=== PATIENT | female | born 1970 ===

== ENCOUNTER 2017-05-03 22:54 | Inpatient (IN) | payer OTHER ==
--- NOTE | 2017-05-04 00:20 | ED PDOC ---
HPI: Abdomen Time Seen by Provider: 05/03/17 23:25 Chief Complaint (Nursing): Abdominal Pain Chief Complaint (Provider): Abdominal Pain History Per: Patient History/Exam Limitations: no limitations Onset/Duration Of Symptoms: Days (7 days ago) Outside of [place] travel?: Yes Other Location:: [place] Current Symptoms Are (Timing): Still Present Location Of Pain/Discomfort: RLQ Additional Complaint(s): 46 yo female with a history of chronic cervicitis, presents to the ED complaining of right lower abdominal pain, onset of 7 days ago. Patient reports that the pain became acutely worse when she was getting out of a car today, and describes the pain as sharp, residing mainly in the middle, but also radiates to her right lower quadrant. She reports nausea and diminished appetite, but denies any vomiting, fever, chest pain, diarrhea, or shortness of breath. Past Medical History Reviewed: Historical Data, Nursing Documentation, Vital Signs Vital Signs: Last Vital Signs Temp 98.0 F 05/04/17 05:14 Pulse 116 H 05/04/17 05:14 Resp 14 05/04/17 05:14 BP 104/62 05/04/17 05:14 Pulse Ox 97 05/04/17 05:14 - Medical History Other PMH: chronic cervicitis - Surgical History Surgical History: No Surg Hx - Family History Family History: States: Unknown Family Hx - Social History Current smoker - smoking cessation education provided: No Ex-Smoker (has not smoked in the last 12 months): No Alcohol: None Drugs: Denies - Home Medications Home Medications: Ambulatory Orders Medication Instructions Recorded Naproxen [Naprosyn] 500 mg PO Q12 #14 tab 05/04/17 Sulfamethoxazole/Trimethoprim 1 tab PO BID #20 tab 05/04/17 [Bactrim DS 800 mg-160 mg] - Allergies Allergies/Adverse Reactions: Allergies Allergy/AdvReac Type Severity Reaction Status Date / Time Penicillins Allergy RASH Verified 05/03/17 23:07 Review of Systems ROS Statement: Except As Marked, All Systems Reviewed And Found Negative Constitutional: Positive for: Other (decreased appetite). Negative for: Fever Cardiovascular: Negative for: Chest Pain Respiratory: Negative for: Shortness of Breath Gastrointestinal: Positive for: Nausea, Abdominal Pain (suprapubic and rlq). Negative for: Vomiting, Diarrhea Physical Exam - Reviewed Nursing Documentation Reviewed: Yes Vital Signs Reviewed: Yes - Physical Exam Appears: Positive for: Well, Non-toxic, No Acute Distress Head Exam: Positive for: ATRAUMATIC, NORMAL INSPECTION, NORMOCEPHALIC Skin: Positive for: Normal Color, Warm, DRY Eye Exam: Positive for: EOMI, Normal appearance, PERRL ENT: Positive for: Normal ENT Inspection Neck: Positive for: Normal, Painless ROM Cardiovascular/Chest: Positive for: Regular Rate, Rhythm. Negative for: Murmur Respiratory: Positive for: Normal Breath Sounds. Negative for: Respiratory Distress Gastrointestinal/Abdominal: Positive for: Soft, Tenderness (to suprapubic and RLQ regions) Back: Positive for: Normal Inspection Extremity: Positive for: Normal ROM. Negative for: Pedal Edema, Deformity Neurologic/Psych: Positive for: Alert, Oriented (x3). Negative for: Motor/ Sensory Deficits - Laboratory Results Result Diagrams: 05/04/17 00:10 05/04/17 00:10 - ECG O2 Sat by Pulse Oximetry: 98 (RA) Pulse Ox Interpretation: Normal - Critical Care Total Time (In Min): 30 Medical Decision Making Medical Decision Making: Time: --00:05 Impression: --46 yo female with Right Lower Quadrant abdominal pain Plan: --CT ABD and Pelvis with IV Contrast --Labs --Lipase --ED Urine Dip --Urine Preg --Toradol 15mg IV --Heplock Insertion --Urinalysis --Transvaginal US - Reassess --00:41 CT ABD and Pelvis with IV Constrast was cancelled. Labs reviewed and reveal no clinically significant abnormalities, except for urine, which is indicative of a Urinary Tract infection. Patient is still waiting for Ultrasound. --02:35 EXAM: US Pelvis, Transvaginal EXAM DATE/TIME: 05/04/2017 12:09 AM CLINICAL HISTORY: 46 years old, female; Pain; Pelvic pain; Additional info: Rlq pain TECHNIQUE: Real-time transvaginal pelvic ultrasound (complete) with image documentation. Transvaginal imaging was used for better evaluation of the endometrium and adnexa. COMPARISON: No relevant prior studies available. FINDINGS: Uterus/cervix: Nabothian cysts in the cervix. There is an IUD in the uterus. Endometrial thickness of 8mm. The uterus measures 8.4 x 5 x 3.4 cm. No myometrial mass. Right ovary: Right ovary measures 37 x 27 x 37 mm with a 13 mm follicle. Normal blood flow. Left ovary: Enlarged heterogeneous left ovary measuring at 9.6 x 5.4 x 9 cm, with cystic and solid areas. Normal blood flow. Free fluid: No free fluid. IMPRESSION: Complexed enlarged left ovary, with cystic and solid areas, mass not excluded. Comparison with priors or further evaluation with MRI may be considered --03:40 Labs reviewed and reveal no clinically significant abnormalities with exception of WBC, which is depressed with a left shift, and is likely indicative of pylonephritis with sepsis. Patient noted to be tachycardic and hypotensive; 4L IV fluid bolus ordered as well as Lactate level. Case was discussed with Dr. Wheatley for admission Dx Pyelonephritis, Sepsis Fair Scribe Attestation: Documented by Shoaib Mccray acting as a scribe for Refugio Winslow MD. Provider Attestation: All medical record entries made by the Scribe were at my direction and personally dictated by me. I have reviewed the chart and agree that the record accurately reflects my personal performance of the history, physical exam, medical decision making, and the department course for this patient. I have also personally directed, reviewed, and agree with the discharge instructions and disposition. Disposition - Clinical Impression Clinical Impression: UTI (urinary tract infection), Ovarian cyst Discussed With : Aram Wheatley - Disposition Disposition Time: 03:40 Condition: FAIR
[2017-05-04 00:23] LABS: BASO % 0.2 % (0.0-2.0); EOS % 0.1 % (0.0-4.0); HEMOGLOBIN 10.7 g/dL (12.0-16.0); LYMPH # 0.3 K/uL (1.0-4.3); LYMPH % 8.2 % (20.0-40.0); MEAN CELL VOLUME 75.3 fl (81.0-99.0); MEAN CORPUSCULAR HEMOGLOBIN 24.2 pg (27.0-31.0); MEAN CORPUSCULAR HGB CONC 32.2 g/dL (33.0-37.0); MEAN PLATELET VOLUME 8.9 fl (7.2-11.7); MONO # 0.2 K/uL (0.0-0.8); MONO % 6.6 % (0.0-10.0); NEUT # 2.7 K/uL (1.8-7.0); NEUT % 84.9 % (50.0-75.0); PLATELET COUNT 171 K/uL (130-400); RBC 4.42 Mil/uL (3.80-5.20); RED CELL DISTRIBUTION WIDTH 17.7 % (11.5-14.5); WHITE BLOOD COUNT 3.1 K/uL (4.8-10.8)
[2017-05-04 00:27] LABS: SQUAMOUS EPITHIAL 5 /hpf (0-5); URINE BACTERIA RARE (<OCC); URINE BILIRUBIN NEGATIVE (NEGATIVE); URINE BLOOD LARGE (NEGATIVE); URINE CLARITY CLOUDY (Clear); URINE COLOR YELLOW (YELLOW); URINE GLUCOSE (UA) NEG (Normal); URINE LEUKOCYTE ESTERASE LARGE Leu/uL (Negative); URINE PROTEIN 100 mg/dL (NEGATIVE); URINE UROBILINOGEN 0.2-1.0 mg/dL (0.2-1.0)
[2017-05-04 00:33] LABS: ALB/GLOB RATIO 0.9 (1.0-2.1); ALBUMIN 3.5 g/dL (3.5-5.0); ALT/SGPT 48 U/L (9-52); AST/SGOT 30 U/L (14-36); BLOOD UREA NITROGEN 11 mg/dl (7-17); CALCIUM 8.8 mg/dL (8.4-10.2); GFR AFRICAN-AMERICAN > 60; GFR NON-AFRICAN AMERICAN > 60; LIPASE 18 U/L (23-300)
[2017-05-04] MEDS ORDERED: cefTRIAXone (Rocephin) 1 gm Inj ONE ×2 (00:34→04:01)
[2017-05-04] MEDS ORDERED: Sodium Chloride 0.9% 1,000 ML IV STA ×4 (03:01→04:19)
[2017-05-04 03:20] LABS: ANISOCYTOSIS SLIGHT; BANDS 5 % (0-2); HYPOCHROMIC SLIGHT; LYMPHOCYTE 5 % (20-50); MONOCYTE 6 % (0-10); NEUTROPHIL 84 % (42-75); PLATELET ESTIMATE NORMAL (NORMAL); TOTAL CELLS COUNTED 100
[2017-05-04 03:21] LABS: LARGE PLATELETS PRESENT
[2017-05-04] MEDS ORDERED: Iohexol 300 100 ML IJ ONE (03:50)
--- NOTE | 2017-05-04 03:59 | CP.PCM.HP ---
History of Present Illness - History of Present Illness History of Present Illness: CC: Flank/abd pain, dysuria HPI: This is a 46 y/o female presenting with abdominal discomfort on RLQ. Started about a week ago, and became worse progressively, and especially today. There is associated nausea, and anorexia. No f/c/n/v/d. She does have a history of chronic cervicitis. ROS: 14 systems reviewed, negative other than HPI MHx: Chronic cervicitis SHx: None; has had some type of procedure of cervix Allergies: PCN Family Hx: No known/relevant history Social Hx: Lives with family, no tobacco or significant EtOH Present on Admission - Present on Admission Any Indicators Present on Admission: No Past Patient History - Past Social History Alcohol: None Drugs: Denies - CARDIAC Hx Cardiac Disorders: No - PULMONARY Hx Respiratory Disorders: No - NEUROLOGICAL Hx Neurological Disorder: No - HEENT Hx HEENT Problems: No - RENAL Hx Chronic Kidney Disease: No - ENDOCRINE/METABOLIC Hx Endocrine Disorders: No - HEMATOLOGICAL/ONCOLOGICAL Hx Blood Disorders: No - INTEGUMENTARY Hx Dermatological Problems: No - MUSCULOSKELETAL/RHEUMATOLOGICAL Hx Musculoskeletal Disorders: No - GASTROINTESTINAL Hx Gastrointestinal Disorders: No - GENITOURINARY/GYNECOLOGICAL Hx Genitourinary Disorders: Yes Other/Comment: Cervicitis - PSYCHIATRIC Hx Psychophysiologic Disorder: No Hx Substance Use: No Meds Home Medications: Home Medication List Medication Instructions Recorded Confirmed Type Naproxen [Naprosyn] 500 mg PO Q12 #14 tab 05/04/17 Rx Sulfamethoxazole/Trimethoprim 1 tab PO BID #20 tab 05/04/17 Rx [Bactrim DS 800 mg-160 mg] Allergies/Adverse Reactions: Allergies Allergy/AdvReac Type Severity Reaction Status Date / Time Penicillins Allergy RASH Verified 05/03/17 23:07 Physical Exam - Constitutional Appears: No Acute Distress - Head Exam Head Exam: ATRAUMATIC, NORMOCEPHALIC - Eye Exam Eye Exam: EOMI, PERRL - ENT Exam ENT Exam: Mucous Membranes Moist - Neck Exam Neck exam: Positive for: Full Rom - Respiratory Exam Respiratory Exam: Clear to Auscultation Bilateral, NORMAL BREATHING PATTERN - Cardiovascular Exam Cardiovascular Exam: REGULAR RHYTHM, +S1, +S2 - GI/Abdominal Exam GI & Abdominal Exam: Normal Bowel Sounds, Soft - Extremities Exam Extremities exam: Positive for: full ROM, normal inspection - Neurological Exam Neurological exam: Alert, CN II-XII Intact, Oriented x3 - Psychiatric Exam Psychiatric exam: Normal Affect, Normal Mood - Skin Skin Exam: Dry, Warm Results - Vital Signs Recent Vital Signs: Last Vital Signs Temp 97.9 F 05/04/17 03:13 Pulse 122 H 05/04/17 03:13 Resp 16 05/04/17 03:13 BP 94/57 L 05/04/17 03:13 Pulse Ox 98 05/04/17 03:48 - Labs Result Diagrams: 05/04/17 00:10 05/04/17 00:10 Labs: Laboratory Results - last 24 hr 05/04/17 05/04/17 05/04/17 00:10 00:10 00:10 WBC 3.1 L RBC 4.42 Hgb 10.7 L Hct 33.3 L MCV 75.3 L MCH 24.2 L MCHC 32.2 L RDW 17.7 H Plt Count 171 MPV 8.9 Neut % (Auto) 84.9 H Lymph % (Auto) 8.2 L [place] % (Auto) 6.6 Eos % (Auto) 0.1 Baso % (Auto) 0.2 Neut # (Auto) 2.7 Lymph # (Auto) 0.3 L [place] # (Auto) 0.2 Eos # (Auto) 0.0 Baso # (Auto) 0.0 Neutrophils % (Manual) 84 H Band Neutrophils % 5 H Lymphocytes % (Manual) 5 L Monocytes % (Manual) 6 Platelet Estimate Normal Large Platelets Present Hypochromasia (manual) Slight Anisocytosis (manual) Slight Sodium 135 Potassium 3.7 Chloride 103 Carbon Dioxide 21 L Anion Gap 15 BUN 11 Creatinine 0.6 L Est GFR ( Amer) > 60 Est GFR (Non-Af Amer) > 60 Random Glucose 105 Calcium 8.8 Total Bilirubin 0.8 AST 30 ALT 48 Alkaline Phosphatase 60 Total Protein 7.4 Albumin 3.5 Globulin 3.8 Albumin/Globulin Ratio 0.9 L Lipase 18 L Urine Color Yellow Urine Clarity Cloudy Urine pH 5.0 Ur Specific [place] 1.026 Urine Protein 100 Urine Glucose (UA) Neg Urine Ketones 20 Urine Blood Large Urine Nitrate Negative Urine Bilirubin Negative Urine Urobilinogen 0.2-1.0 Ur Leukocyte Esterase Large Urine RBC (Auto) 34 H Urine Microscopic WBC 151 H Ur Squamous Epith Cells 5 Urine Bacteria Rare - Imaging and Cardiology US - abdomen Status: Report reviewed by me Assessment & Plan (1) Pyelonephritis Assessment and Plan: 46 y/o female with pyelonephritis and associated sepsis. -admite tele -f/u cultures -cont Ceftriaxone 1 g daily -pain control per scale -SCDs for DVT PPx Status: Acute (2) Sepsis Status: Acute (3) DVT prophylaxis Status: Acute
[2017-05-04] MEDS ORDERED: Lactated Ringer's 1,000 ML IV SCH (04:00)
[2017-05-04 04:05] LABS: VENOUS BLOOD GAS BASE EXCESS -3.3 mmol/L (0.0-2.0); VENOUS BLOOD GAS PCO2 36 mmHg (40-60); VENOUS BLOOD GAS PO2 24 mm/Hg (30-55); VENOUS BLOOD PH 7.38 (7.32-7.43)
[2017-05-04] MEDS ORDERED: Oxycodone/Acetaminophen 5/325 mg Tab PO STA (04:27)
--- NOTE | 2017-05-04 06:04 | CT ---
EXAM: CT Abdomen and Pelvis With Intravenous Contrast EXAM DATE/TIME: 05/04/2017 3:40 AM CLINICAL HISTORY: 46 years old, female; Pain; Abdominal pain; Additional info: [facility] pyelo TECHNIQUE: Axial computed tomography images of the abdomen and pelvis with intravenous contrast. All CT scans at this facility use one or more dose reduction techniques, viz.: automated exposure control; ma/kV adjustment per patient size (including targeted exams where dose is matched to indication; i.e. head); or iterative reconstruction technique. Coronal and sagittal reformatted images were created and reviewed. CONTRAST: 95 mL of onmipaque 300 administered intravenously. COMPARISON: None is available. FINDINGS: LOWER THORAX: No infiltrate seen in the lung bases. ABDOMEN: LIVER: Fatty infiltration of the liver. GALLBLADDER AND BILE DUCTS: No CT evidence of acute cholecystitis. No evidence of significant biliary ductal dilatation. PANCREAS: No CT evidence of acute pancreatitis. SPLEEN: No acute abnormality of the spleen identified. ADRENALS: No acute abnormality of the adrenal glands identified. KIDNEYS AND URETERS:No acute abnormality of the kidneys identified. No CT evidence of pyelonephritis.. STOMACH AND BOWEL: Mild, diffuse colonic wall thickening, most likely secondary to incomplete colonic distention versus mild colitis. Scattered colonic diverticulosis, without evidence of diverticulitis. Otherwise, no significant abnormality of the bowel is identified. No evidence of bowel obstruction. APPENDIX: Normal appendix is not seen, however, there are no significant inflammatory changes visualized in the expected location of the appendix to suggest appendicitis. Recommend clinical correlation. PELVIS: BLADDER: No acute abnormality of the bladder identified. REPRODUCTIVE: Findings highly suspicious for a left tubo-ovarian abscess. Best seen on images 47-64 of series 601, there is a crescent shaped complex cystic left adnexal mass, measuring 10 x 3.5 cm, which has a tubular appearance and enhancing soft tissue margins. No associated gas. Small cystic lesion in the right ovary, with an appearance suggestive of an involuting corpus luteal cyst. Linear metallic density in the uterus, most likely representing an intrauterine device or a retained portion of an intrauterine device. Recommend correlation with surgical history. ABDOMEN and PELVIS: INTRAPERITONEAL SPACE: Mild, diffuse peritoneal fat infiltration and peritoneal thickening, highly suspicious for peritonitis. Moderate complex fluid in the pelvis, centered in the cul-de-sac. Small to moderate amount of abdominal free fluid, partially complex in nature. No evidence of free air. BONES/JOINTS: No acute fractures or other acute bony abnormality noted. SOFT TISSUES: No acute abnormality of the visualized soft tissues is seen. VASCULATURE: No evidence of abdominal aortic aneurysm. No evidence of periaortic hemorrhage. LYMPH NODES: No evidence of diffuse lymphadenopathy. IMPRESSION: - FINDINGS HIGHLY SUSPICIOUS FOR PERITONITIS, ASSOCIATED WITH COMPLEX PELVIC AND ABDOMINAL FREE FLUID. THIS IS MOST LIKELY SECONDARY TO A 10 x 3 CM LEFT-SIDED TUBO-OVARIAN ABSCESS. - IUD or retained portion of an IUD in the uterus. Recommend correlation with surgical history. - See above for remaining findings.
[2017-05-04] MEDS ORDERED: Azithromycin 500 MG in Sodium Chloride 0.9% 250 ML IVPB STA (06:06)
[2017-05-04] MEDS ORDERED: metroNIDAZOLE 500mg/100ml NS 100 ML IVPB STA (06:12)
[2017-05-04 06:30] LABS: HEMOGLOBIN 9.9 g/dL (12.0-16.0); MEAN CELL VOLUME 75.1 fl (81.0-99.0); MEAN CORPUSCULAR HEMOGLOBIN 24.9 pg (27.0-31.0); MEAN CORPUSCULAR HGB CONC 33.1 g/dL (33.0-37.0); RBC 3.98 Mil/uL (3.80-5.20); RED CELL DISTRIBUTION WIDTH 17.6 % (11.5-14.5); WHITE BLOOD COUNT 7.8 K/uL (4.8-10.8)
[2017-05-04 06:57] LABS: BLOOD UREA NITROGEN 7 mg/dl (7-17); CALCIUM 7.5 mg/dL (8.4-10.2); GFR AFRICAN-AMERICAN > 60; GFR NON-AFRICAN AMERICAN > 60
--- NOTE | 2017-05-04 07:53 | RAD ---
HISTORY: admit COMPARISON: No prior. FINDINGS: LUNGS: No active pulmonary disease. PLEURA: No significant pleural effusion identified, no pneumothorax apparent. CARDIOVASCULAR: Normal. OSSEOUS STRUCTURES: No significant abnormalities. VISUALIZED UPPER ABDOMEN: Normal. OTHER FINDINGS: None. IMPRESSION: No acute cardiopulmonary disease appreciable.
--- NOTE | 2017-05-04 08:36 | CP.PCM.CON ---
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 Rubin 46 yo presents to ED w/ complaints of lower abdominal pain since Wednesday04/30/17. Pt reports her abdominal pain progressively got worse yesterday (11/24 ) and worse with ambulation and movement. Reports burning with urination. Pt reports she she hx "chronic cervicitis" since 2006 diagnosed in [place], does not know the reason. Pt has IUD placed in 2002 in [place]. Pt does not know type of IUD. Denies vaginal bleeding, vaginal discharge, nausea, vomiting, fever, chills or flank pain. Pt took tylenol and ibuprofen for pain. 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 LMP 04/03/17. Had cold knife cone bx IN 2006 in [place]. States normal pap in 2014. Denies hx STI. Reports she had normal US in 2016. Pmhx: Anemia Pshx: denies social hx: denies smoking cigarettes, drinking EtOH or using drugs. Medications: ibuprofen prn, tylenol prn and Iron pills. Allergies: Penicillin: Rash Review of Systems - Constitutional Constitutional: absent: Chills, Fever - Cardiovascular Cardiovascular: absent: Chest Pain, Dyspnea - Respiratory Respiratory: absent: Cough, Dyspnea - Gastrointestinal Gastrointestinal: Abdominal Pain, Diarrhea. absent: Vomiting - Genitourinary Genitourinary: Dysuria - Reproductive: Female Reproductive:Female: Pelvic Pain. absent: Vaginal Discharge - Neurological Neurological: absent: Dizziness, Headaches Past Patient History - Past Social History Alcohol: None Drugs: Denies - CARDIAC Hx Cardiac Disorders: No - PULMONARY Hx Respiratory Disorders: No - NEUROLOGICAL Hx Neurological Disorder: No - HEENT Hx HEENT Problems: No - RENAL Hx Chronic Kidney Disease: No - ENDOCRINE/METABOLIC Hx Endocrine Disorders: No - HEMATOLOGICAL/ONCOLOGICAL Hx Blood Disorders: No - INTEGUMENTARY Hx Dermatological Problems: No - MUSCULOSKELETAL/RHEUMATOLOGICAL Hx Musculoskeletal Disorders: No - GASTROINTESTINAL Hx Gastrointestinal Disorders: No - GENITOURINARY/GYNECOLOGICAL Hx Genitourinary Disorders: Yes - PSYCHIATRIC Hx Psychophysiologic Disorder: No Meds Allergies/Adverse Reactions: Allergies Allergy/AdvReac Type Severity Reaction Status Date / Time Penicillins Allergy RASH Verified 05/03/17 23:07 - Medications Medications: Current Medications Acetaminophen (Tylenol 325mg Tab) 650 mg PO Q6 PRN PRN Reason: Pain, Mild (1-3) Acetaminophen (Tylenol 325mg Tab) 650 mg PO Q6 PRN PRN Reason: Fever >100.4 F Ceftriaxone Sodium 1 gm/ (Sodium Chloride) 100 mls @ 100 mls/hr IVPB DAILY PATRICIA PRN Reason: Protocol Lactated Ringer's (Lactated Ringer's) 1,000 mls @ 100 mls/hr IV .Q10H [facility] Stop: 05/04/17 23:59 Azithromycin 500 mg/ Sodium (Chloride) 250 mls @ 250 mls/hr IVPB DAILY PATRICIA PRN Reason: Protocol Metronidazole (Flagyl 500mg/100ml Ns) 100 mls @ 100 mls/hr IVPB Q8 PATRICIA PRN Reason: Protocol Doxycycline Hyclate 100 mg/ (Sodium Chloride) 100 mls @ 100 mls/hr IVPB Q12 PATRICIA PRN Reason: Protocol Ketorolac Tromethamine (Toradol) 15 mg IVP Q6 PRN PRN Reason: Pain, moderate (4-7) Last Admin: 05/04/17 05:34 Dose: 15 mg Physical Exam - Constitutional Appears: Non-toxic, No Acute Distress - ENT Exam ENT Exam: Mucous Membranes Moist - Respiratory Exam Respiratory Exam: Clear to Auscultation Bilateral, NORMAL BREATHING PATTERN. absent: Rales, Rhonchi - Cardiovascular Exam Cardiovascular Exam: Tachycardia, REGULAR RHYTHM, +S1, +S2 - GI/Abdominal Exam GI & Abdominal Exam: Soft. absent: Distended Additional comments: Mild tenderness in lower abdomen. No guarding or rigidity. - Exam Speculum exam: NORMAL SPECULUM EXAM (Unable to visualized the string of IUD.). absent: Vaginal Bleeding, Vaginal Discharge Additional comments: Mild uterine tenderness and mild CMT tenderness. Mild right adnexal tenderness with fullness on right. Has shortened cervix. - Extremities Exam Extremities exam: Positive for: normal inspection. Negative for: calf tenderness - Back Exam Back exam: absent: CVA tenderness (L), CVA tenderness (R) - Neurological Exam Neurological exam: Alert, Oriented x3 Results - Vital Signs Recent Vital Signs: Last Vital Signs Temp 97.7 F 05/04/17 07:58 Pulse 117 H 05/04/17 07:58 Resp 18 05/04/17 07:58 BP 96/58 L 05/04/17 07:58 Pulse Ox 100 05/04/17 07:58 - Labs Result Diagrams: 05/04/17 05:45 05/04/17 05:45 Labs: Laboratory Results - last 24 hr 05/04/17 05/04/17 05/04/17 00:10 00:10 00:10 WBC 3.1 L RBC 4.42 Hgb 10.7 L Hct 33.3 L MCV 75.3 L MCH 24.2 L MCHC 32.2 L RDW 17.7 H Plt Count 171 MPV 8.9 Neut % (Auto) 84.9 H Lymph % (Auto) 8.2 L [place] % (Auto) 6.6 Eos % (Auto) 0.1 Baso % (Auto) 0.2 Neut # (Auto) 2.7 Lymph # (Auto) 0.3 L [place] # (Auto) 0.2 Eos # (Auto) 0.0 Baso # (Auto) 0.0 Neutrophils % (Manual) 84 H Band Neutrophils % 5 H Lymphocytes % (Manual) 5 L Monocytes % (Manual) 6 Platelet Estimate Normal Large Platelets Present Hypochromasia (manual) Slight Anisocytosis (manual) Slight pO2 VBG pH VBG pCO2 VBG HCO3 VBG Total CO2 VBG O2 Sat (Calc) VBG Base Excess VBG Potassium Glucose Lactate FiO2 Sodium 135 Potassium 3.7 Chloride 103 Carbon Dioxide 21 L Anion Gap 15 BUN 11 Creatinine 0.6 L Est GFR ( Amer) > 60 Est GFR (Non-Af Amer) > 60 Random Glucose 105 Calcium 8.8 Total Bilirubin 0.8 AST 30 ALT 48 Alkaline Phosphatase 60 Total Protein 7.4 Albumin 3.5 Globulin 3.8 Albumin/Globulin Ratio 0.9 L Lipase 18 L Venous Blood Potassium Urine Color Yellow Urine Clarity Cloudy Urine pH 5.0 Ur Specific [place] 1.026 Urine Protein 100 Urine Glucose (UA) Neg Urine Ketones 20 Urine Blood Large Urine Nitrate Negative Urine Bilirubin Negative Urine Urobilinogen 0.2-1.0 Ur Leukocyte Esterase Large Urine RBC (Auto) 34 H Urine Microscopic WBC 151 H Ur Squamous Epith Cells 5 Urine Bacteria Rare 05/04/17 05/04/17 05/04/17 03:50 05:45 05:45 WBC 7.8 D RBC 3.98 Hgb 9.9 L Hct 29.9 L MCV 75.1 L MCH 24.9 L MCHC 33.1 RDW 17.6 H Plt Count 167 MPV Neut % (Auto) Lymph % (Auto) [place] % (Auto) Eos % (Auto) Baso % (Auto) Neut # (Auto) Lymph # (Auto) [place] # (Auto) Eos # (Auto) Baso # (Auto) Neutrophils % (Manual) Band Neutrophils % Lymphocytes % (Manual) Monocytes % (Manual) Platelet Estimate Large Platelets Hypochromasia (manual) Anisocytosis (manual) pO2 24 L VBG pH 7.38 VBG pCO2 36 L VBG HCO3 20.8 VBG Total CO2 22.4 VBG O2 Sat (Calc) 48.1 VBG Base Excess -3.3 L VBG Potassium 3.7 Glucose 101 Lactate 1.0 FiO2 21.0 Sodium 136.0 139 Potassium 3.6 Chloride 108.0 H 111 H Carbon Dioxide 19 L Anion Gap 13 BUN 7 Creatinine 0.6 L Est GFR ( Amer) > 60 Est GFR (Non-Af Amer) > 60 Random Glucose 103 Calcium 7.5 L Total Bilirubin AST ALT Alkaline Phosphatase Total Protein Albumin Globulin Albumin/Globulin Ratio Lipase Venous Blood Potassium 3.7 Urine Color Urine Clarity Urine pH Ur Specific [place] Urine Protein Urine Glucose (UA) Urine Ketones Urine Blood Urine Nitrate Urine Bilirubin Urine Urobilinogen Ur Leukocyte Esterase Urine RBC (Auto) Urine Microscopic WBC Ur Squamous Epith Cells Urine Bacteria Assessment & Plan - Assessment and Plan (Free Text) Assessment: Assessment: 46 yo admitted today for pyenonephritis and sepsis, now CT scan shows left tubo-ovarian abscess. Plan: 1. PID with left tubo-ovarian abscess Transvaginal US: IMPRESSION: complexed enlarged left ovary, with cystic and solid areas, mass not excluded. Comparison with priors or further evaluation with MRI may be considered. CT of abdomen and pelvis: Impression: findings highly suspicious for peritonitis , associated with complex pelvic and abdominal free fluid. This is most likely secondary to a 10x3 cm left sided tubo-ovarian abscess. -Recommend ID consult for abx management. 2. IUD for 15 yrs -Unable to visualized the string with speculum exam -If pt's vitals are stable, IUD removal can be considered. -May need surgical removal of IUD with diagnostic hysteroscopy. Pt seen and examined with on-call OB Hospitalist Dr. Caryn Martinez, pgy-1 <Nona Rubin S - Last Filed: 05/10/17 20:59> Review of Systems - Respiratory Respiratory: absent: Dyspnea on Exertion - Reproductive: Female Reproductive:Female: Cycle > 4 Weeks Between. absent: Cycle <21 Days - Integumentary Integumentary: absent: Rash Results - Vital Signs Recent Vital Signs: Last Vital Signs Temp 99.0 F 05/10/17 17:00 Pulse 101 H 05/10/17 17:00 Resp 17 05/10/17 17:00 BP 111/73 05/10/17 17:00 Pulse Ox 98 05/10/17 17:00 - Labs Result Diagrams: 05/10/17 04:20 05/10/17 04:20 Labs: Laboratory Results - last 24 hr 05/10/17 05/10/17 04:20 04:20 WBC 11.1 H RBC 3.90 Hgb 9.5 L Hct 28.8 L MCV 73.8 L MCH 24.3 L MCHC 33.0 RDW 18.2 H Plt Count 333 Sodium 140 Potassium 3.4 L Chloride 104 Carbon Dioxide 23 Anion Gap 16 BUN 8 Creatinine 0.6 L Est GFR ( Amer) > 60 Est GFR (Non-Af Amer) > 60 Random Glucose 97 Calcium 7.9 L
[2017-05-04] MEDS ORDERED: Piperacillin/Tazobact 3.375 GM in Sodium Chloride 0.9% 100 ML IVPB SCH (08:45)
[2017-05-04] MEDS ORDERED: Sodium Chloride 0.9% 1,000 ML IV SCH (08:45)
[2017-05-04] MEDS ORDERED: Azithromycin 500 MG in Sodium Chloride 0.9% 250 ML IVPB SCH (09:00)
--- NOTE | 2017-05-04 09:51 | CARD ---
APPROVED REPORT EKG Measurement Heart [id number] [id number] <Conclusion> Sinus tachycardia Nonspecific ST and T wave abnormality Abnormal ECG artefact present
[2017-05-04 10:03] LABS: INR 1.3 (0.9-1.2); PARTIAL THROMBOPLASTIN TIME 30.4 Seconds (25.6-37.1); PROTHROMBIN TIME 14.2 Seconds (9.8-13.1)
--- NOTE | 2017-05-04 11:43 | US ---
HISTORY: RLQ pain Menstrual status: LMP 06/22/2017. Irregular cycles. COMPARISON: 05/04/[address] scan TECHNIQUE: Transvaginal only. Real -time technique with 2D, duplex and color Doppler FINDINGS: UTERUS: Measures 5 x 3.4 x 8.4 cm. Normal in size and appearance. No fibroid or other mass lesion seen. ENDOMETRIUM: Measures 7.8 mm in diameter. Intrauterine contraceptive device (IUD) identified No ultrasound findings to suggest gestational sac, fluid, debris, mass or polyp or other pathologic process within the endometrium. CERVIX: No cervical abnormality identified.Incidental finding: Nabothian cysts the largest measures 1.3 x 1.7 cm RIGHT OVARY: Measures 62.7 x 3.7 x 3.7 cm. No solid mass. Normal flow. Multiple subcentimeter follicles. Dominant cyst 1 x 1.3 cm LEFT OVARY: Measures 2.8 x 2.7 cm. . Complex cystic and solid mass perhaps tubo-ovarian abscess.5.4 x 9.6 cm FREE FLUID: No significant free fluid noted. OTHER FINDINGS: None. IMPRESSION: Enlarged solid and cystic left adnexal mass. Tubo-ovarian abscess is less likely consideration Concordant results (preliminary interpretation) provided by [facility]. Procedure Completed: 00:56 Preliminary ([facility]) Report: Dictated and Authenticated: 02:35 Final Interpretation: 11:41 May 04, 2017.
[2017-05-04] MEDS ORDERED: Morphine 4 MG/ML VIAL IVP PRN (16:24)
[2017-05-04] MEDS: metroNIDAZOLE 500mg/100ml NS 100 ML IVPB SCH ×2 (17:14→21:12)
[2017-05-04] MEDS: Oxycodone/Acetaminophen 5/325 mg Tab PO PRN (20:38)
[2017-05-04] MEDS: Gentamicin 100mg/100ml NS 100 MG/100 ML BAG IVPB SCH (21:18)
--- NOTE | 2017-05-04 22:10 | CON ---
INFECTIOUS DISEASE CONSULTATION DATE: LOCATION: The patient admitted to [address] [place] [address]. HISTORY OF PRESENT ILLNESS: The patient is a 46-year-old female who states she developed some right lower quadrant pain on the Wednesday night prior to admission. She said it became progressively worse and when she went to work on Wednesday and which was yesterday, she became significantly worse and she came to the emergency room. She had some nausea, but no vomiting and she states that she did not have any history of fever or chills that she is aware of. Only history is of chronic cervicitis in past and the patient also has an IUD in which has been in for many years and states that has not been checked while in [facility], which is only for the past 4 years. The patient when examined also appear to be in distress and in pain and she could not move easily she was lying on the left side and was not able to move to the right side or flat on her back without pain. On per reading the HYDROELECTRIC PRODUCTION MANAGER note, the IUD apparently was placed in 2002 in [place]. Of significance,over past months she has noted a change in her periods and has been getting it x2 each month. Apparently, there is a history of normal ultrasound in 2017. LABORATORY DATA: Urine shows bacteria to be rare, which she has 151 microscopic WBC, 34 RBCs, large amount of leukocyte esterase and large amount of blood in the urine as well as 20 ketones and proteins were 100. Urine was also cloudy. Chemistry; BUN is 7 today, creatinine is 0.6, GFR greater than 60, lactic acid was 1.1, and calcium was 7.5. WBC count today is 7.8, hemoglobin 9.9, there is a left shift. Transvaginal ultrasound shows enlarged solid and cystic left adnexal mass, tubo-ovarian abscess is less likely consideration. Abdominal and pelvic CT shows findings are highly suspicious for peritonitis associated with complex pelvic and abdominal free fluid, this is most likely secondary to a 3 cm left-sided tubo-ovarian abscess. There is also an IUD in uterus. PHYSICAL EXAMINATION: HEENT: Shows head is normocephalic and atraumatic. Eyes; PERRLA, but she has conjunctivae are pale. Sclerae anicteric. Ears are within normal limits. Nose within normal limits. Throat within normal limits. NECK: Supple. LUNGS: Clear. HEART: Regular sinus rhythm. ABDOMEN: Tender in all quadrants and the patient barely allows me to touch her abdomen. EXTREMITIES: No CCE. IMPRESSION AND PLAN: Pelvic inflammatory disease with left tubo-ovarian abscess, probably pyelonephritis. At present time, she states SHE IS ALLERGIC TO PENICILLIN and I have placed her on doxycycline 1000 mg IV piggyback q.12 hours, clindamycin 600 mg IV piggyback q.8 hours, Flagyl 500 mg IV piggyback q.8 hours, and I have given a dose of gentamicin 100 mg one stat dose. Awaiting for cultures to probably streamline or change the therapy. Surgical group, i.e., HYDROELECTRIC PRODUCTION MANAGER is following probable surgery pending after initialresponse to IV antibiotic therapy. We will be in contact with them in regards to care. Krzysztof Archer MD MTDD
[2017-05-05] MEDS: Oxycodone/Acetaminophen 5/325 mg Tab PO PRN ×2 (01:40→09:38)
[2017-05-05] MEDS: metroNIDAZOLE 500mg/100ml NS 100 ML IVPB SCH ×2 (04:29→21:29)
[2017-05-05 06:01] LABS: BASO % 0.1 % (0.0-2.0); EOS % 0.2 % (0.0-4.0); HEMOGLOBIN 9.2 g/dL (12.0-16.0); LYMPH # 0.4 K/uL (1.0-4.3); LYMPH % 3.2 % (20.0-40.0); MEAN CELL VOLUME 75.6 fl (81.0-99.0); MEAN CORPUSCULAR HEMOGLOBIN 24.3 pg (27.0-31.0); MEAN CORPUSCULAR HGB CONC 32.1 g/dL (33.0-37.0); MEAN PLATELET VOLUME 9.5 fl (7.2-11.7); MONO # 0.4 K/uL (0.0-0.8); MONO % 3.2 % (0.0-10.0); NEUT # 12.3 K/uL (1.8-7.0); NEUT % 93.3 % (50.0-75.0); RBC 3.78 Mil/uL (3.80-5.20); RED CELL DISTRIBUTION WIDTH 17.7 % (11.5-14.5); WHITE BLOOD COUNT 13.2 K/uL (4.8-10.8)
[2017-05-05 06:30] LABS: ALB/GLOB RATIO 0.8 (1.0-2.1); ALBUMIN 2.5 g/dL (3.5-5.0); ALT/SGPT 31 U/L (9-52); AST/SGOT 14 U/L (14-36); BLOOD UREA NITROGEN 9 mg/dl (7-17); CALCIUM 7.5 mg/dL (8.4-10.2); GFR AFRICAN-AMERICAN > 60; GFR NON-AFRICAN AMERICAN > 60
[2017-05-05] MEDS ORDERED: Potassium Chloride 40 MEQ in Dextrose 5%/0.9% NS 1,000 ML IV SCH (08:45)
[2017-05-05] MEDS ORDERED: Sodium Chloride 0.9% 1,000 ML IV SCH (08:45)
[2017-05-05] MEDS: Gentamicin 100mg/100ml NS 100 MG/100 ML BAG IVPB SCH ×2 (09:35→21:31)
--- NOTE | 2017-05-05 11:28 | CP.PCM.PN ---
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 Leukocytosis trending up + chills, no fever started her menstrual period today denies CP nor SOB Objective - Vital Signs/Intake and Output Vital Signs (last 24 hours): Temp Pulse Resp BP Pulse Ox 98.1 F 128 H 18 99/61 L 97 05/05/17 07:56 05/05/17 07:56 05/05/17 07:56 05/05/17 07:56 05/05/17 07:56 - Medications Medications: Current Medications Acetaminophen (Tylenol 325mg Tab) 650 mg PO Q6 PRN PRN Reason: Pain, Mild (1-3) Acetaminophen (Tylenol 325mg Tab) 650 mg PO Q6 PRN PRN Reason: Fever >100.4 F Doxycycline Hyclate 100 mg/ (Sodium Chloride) 100 mls @ 100 mls/hr IVPB Q12 PATRICIA PRN Reason: Protocol Last Admin: 05/04/17 21:48 Dose: 100 mls/hr Clindamycin Phosphate 600 mg/ (Dextrose) 54 mls @ 54 mls/hr IVPB Q8 PATRICIA PRN Reason: Protocol Last Admin: 05/05/17 09:35 Dose: 54 mls/hr Gentamicin Sulfate/Sodium Chloride (Gentamicin 100mg/100ml Ns) 100 mg in 100 mls @ 100 mls/hr IVPB Q12 PATRICIA PRN Reason: Protocol Last Admin: 05/05/17 09:35 Dose: 100 mls/hr Metronidazole (Flagyl 500mg/100ml Ns) 100 mls @ 100 mls/hr IVPB Q8@0500,1300, 2100 PATRICIA PRN Reason: Protocol Last Admin: 05/05/17 04:29 Dose: 100 mls/hr Potassium Chloride 40 meq/ (Dextrose/Sodium Chloride) 1,020 mls @ 125 mls/hr IV .Q8H10M PATRICIA Stop: 05/06/17 09:13 Last Admin: 05/05/17 09:42 Dose: 125 mls/hr Ketorolac Tromethamine (Toradol) 15 mg IVP Q6 PRN PRN Reason: Pain, moderate (4-7) Last Admin: 05/04/17 11:48 Dose: 15 mg Morphine Sulfate (Morphine) 2 mg IVP Q4 PRN PRN Reason: Pain, severe (8-10) Last Admin: 05/04/17 17:11 Dose: 2 mg Oxycodone/Acetaminophen (Percocet 5/325 Mg Tab) 1 tab PO Q4 PRN PRN Reason: Pain, moderate (4-7) Stop: 05/07/17 16:43 Last Admin: 05/05/17 09:38 Dose: 1 tab - Labs Labs: 05/05/17 04:25 05/05/17 04:25 PT 14.2 Seconds (9.8-13.1) H 05/04/17 09:38 INR 1.3 (0.9-1.2) H 05/04/17 09:38 APTT 30.4 Seconds (25.6-37.1) 05/04/17 09:38 - Constitutional Appears: Toxic, No Acute Distress - Head Exam Head Exam: ATRAUMATIC, NORMAL INSPECTION, NORMOCEPHALIC - Eye Exam Eye Exam: EOMI, Normal appearance, PERRL Pupil Exam: NORMAL ACCOMODATION - ENT Exam ENT Exam: Mucous Membranes Dry, Normal External Ear Exam - Neck Exam Neck Exam: Full ROM. absent: Meningismus - Respiratory Exam Respiratory Exam: NORMAL BREATHING PATTERN. absent: Rales, Rhonchi, Wheezes, Respiratory Distress - Cardiovascular Exam Cardiovascular Exam: Tachycardia, REGULAR RHYTHM, +S1, +S2 - GI/Abdominal Exam GI & Abdominal Exam: Guarding, Tenderness, Normal Bowel Sounds, Rebound - Extremities Exam Extremities Exam: Full ROM, Normal Capillary Refill. absent: Calf Tenderness, Pedal Edema - Back Exam Back Exam: Full ROM. absent: CVA tenderness (L), CVA tenderness (R), paraspinal tenderness, vertebral tenderness - Neurological Exam Neurological Exam: Alert, Awake, CN II-XII Intact, Normal Gait, Oriented x3 Neuro motor strength exam: Left Upper Extremity: 5, Right Upper Extremity: 5, Left Lower Extremity: 5, Right Lower Extremity: 5 - Psychiatric Exam Psychiatric exam: Normal Affect, Normal Mood - Skin Skin Exam: Dry, Normal Color, Warm Assessment and Plan (1) Sepsis Status: Acute (2) Tubo-ovarian abscess Status: Acute (3) Infection associated with intrauterine device (IUD) Status: Acute (4) DVT prophylaxis Status: Acute - Assessment and Plan (Free Text) Assessment: 46 y/o lady , no significant PMH , has an IUD in place x more than 10 years, came in bec of fever and abdominal pain. CT of the Abdomen : - FINDINGS HIGHLY SUSPICIOUS FOR PERITONITIS, ASSOCIATED WITH COMPLEX PELVIC AND ABDOMINAL FREE FLUID. THIS IS MOST LIKELY SECONDARY TO A 10 x 3 CM LEFT-SIDED TUBO-OVARIAN ABSCESS. - IUD or retained portion of an IUD in the uterus. (1) Sepsis with Peritonitis sec to Tubo-ovarian abscess - Pt has persistent pain, worsening leukocytosis, peritoneal signs - TOP CAGER consult- discussed case with Dr Isaac- will do surgery today - cont IV Clindamycin, Doxycycline and Flagyl - ID consulted - cont IVF hydration - Pain mgt (3) Retained intrauterine device (IUD) Status: Acute Plan to remove IUD surgically ( hysteroscopy) (4) DVT prophylaxis Status: Acute will start Lovenox post op
--- NOTE | 2017-05-05 11:40 | CP.PCM.PN ---
Subjective - Date & Time of Evaluation Date of Evaluation: 05/05/17 Time of Evaluation: 11:00 - Subjective Subjective: TECHNICAL PROJECT MANAGER consult note for Dr. Isaac Pt seen and seen examined at bedside this morning. Pt reports she still have abdominal with body movement. Denies nausea, vomiting, fever, chills. Pt is in NPO since morning. Had normal BM and voiding w/o difficulty. Denies chest pain, dyspnea or dizziness. Objective - Vital Signs/Intake and Output Vital Signs (last 24 hours): Temp Pulse Resp BP Pulse Ox 98.1 F 128 H 18 99/61 L 97 05/05/17 07:56 05/05/17 07:56 05/05/17 07:56 05/05/17 07:56 05/05/17 07:56 - Medications Medications: Current Medications Acetaminophen (Tylenol 325mg Tab) 650 mg PO Q6 PRN PRN Reason: Pain, Mild (1-3) Acetaminophen (Tylenol 325mg Tab) 650 mg PO Q6 PRN PRN Reason: Fever >100.4 F Doxycycline Hyclate 100 mg/ (Sodium Chloride) 100 mls @ 100 mls/hr IVPB Q12 PATRICIA PRN Reason: Protocol Last Admin: 05/04/17 21:48 Dose: 100 mls/hr Clindamycin Phosphate 600 mg/ (Dextrose) 54 mls @ 54 mls/hr IVPB Q8 PATRICIA PRN Reason: Protocol Last Admin: 05/05/17 09:35 Dose: 54 mls/hr Gentamicin Sulfate/Sodium Chloride (Gentamicin 100mg/100ml Ns) 100 mg in 100 mls @ 100 mls/hr IVPB Q12 PATRICIA PRN Reason: Protocol Last Admin: 05/05/17 09:35 Dose: 100 mls/hr Metronidazole (Flagyl 500mg/100ml Ns) 100 mls @ 100 mls/hr IVPB Q8@0500,1300, 2100 PATRICIA PRN Reason: Protocol Last Admin: 05/05/17 04:29 Dose: 100 mls/hr Potassium Chloride 40 meq/ (Dextrose/Sodium Chloride) 1,020 mls @ 125 mls/hr IV .Q8H10M PATRICIA Stop: 05/06/17 09:13 Last Admin: 05/05/17 09:42 Dose: 125 mls/hr Ketorolac Tromethamine (Toradol) 15 mg IVP Q6 PRN PRN Reason: Pain, moderate (4-7) Last Admin: 05/04/17 11:48 Dose: 15 mg Morphine Sulfate (Morphine) 2 mg IVP Q4 PRN PRN Reason: Pain, severe (8-10) Last Admin: 05/04/17 17:11 Dose: 2 mg Oxycodone/Acetaminophen (Percocet 5/325 Mg Tab) 1 tab PO Q4 PRN PRN Reason: Pain, moderate (4-7) Stop: 05/07/17 16:43 Last Admin: 05/05/17 09:38 Dose: 1 tab - Labs Labs: 05/05/17 04:25 05/05/17 04:25 PT 14.2 Seconds (9.8-13.1) H 05/04/17 09:38 INR 1.3 (0.9-1.2) H 05/04/17 09:38 APTT 30.4 Seconds (25.6-37.1) 05/04/17 09:38 - Constitutional Appears: In Acute Distress - Respiratory Exam Respiratory Exam: Clear to Ausculation Bilateral, NORMAL BREATHING PATTERN. absent: Rales, Rhonchi - Cardiovascular Exam Cardiovascular Exam: Tachycardia, REGULAR RHYTHM, +S1, +S2 - GI/Abdominal Exam GI & Abdominal Exam: Soft, Normal Bowel Sounds Additional comments: Diffuse tenderness to palpation with guarding. - Neurological Exam Neurological Exam: Alert, Awake, Oriented x3 Assessment and Plan - Assessment and Plan (Free Text) Assessment: Assessment: 46 yo admitted on 05/04/17 for PID with left tubo-ovarian abscess. Plan: 1. PID with left tubo-ovarian abscess Transvaginal US: IMPRESSION: complexed enlarged left ovary, with cystic and solid areas, mass not excluded. Comparison with priors or further evaluation with MRI may be considered. CT of abdomen and pelvis: Impression: findings highly suspicious for peritonitis , associated with complex pelvic and abdominal free fluid. This is most likely secondary to a 10x3 cm left sided tubo-ovarian abscess. -Pt is go to OR this afternoon -Consent for surgery and possible blood transfusion obtained from patient by Dr. Isaac. Possible risks and complications were d/w patient and patient agrees with the plan. All questions and concerns were addressed. Pt seen and examined with on-call OB Hospitalist Dr. Poncho Martinez, pgy-1
[2017-05-05] MEDS ORDERED: Midazolam 2 MG/2 ML VIAL ONE (11:52)
[2017-05-05] MEDS ORDERED: Succinylcholine 200 mg/10 ml Inj IV ONE (11:52)
[2017-05-05] MEDS ORDERED: Propofol 10 mg/ml Inj (20 ML) ONE (11:52)
[2017-05-05] MEDS ORDERED: Lidocaine 4% (Laryng-O-Jet) Kit MM ONE (11:53)
[2017-05-05] MEDS ORDERED: Lidocaine 1% 5ml Abboject IV ONE (11:53)
[2017-05-05] MEDS ORDERED: Rocuronium 10 mg/ml (5 ml) ONE (11:54)
[2017-05-05] MEDS ORDERED: Neostigmine 1:1000 (1 mg/ml) Inj ONE (11:55)
[2017-05-05] MEDS ORDERED: ceFAZolin IV 2 gm in Dextrose 0 GM/0 ML BAG IVPB ONE (12:23)
[2017-05-05] MEDS ORDERED: Vasopressin 20 Units/ml Inj ONE (12:23)
[2017-05-05 12:42] LABS: BLOOD UREA NITROGEN 9 mg/dl (7-17); CALCIUM 7.6 mg/dL (8.4-10.2); GFR AFRICAN-AMERICAN > 60; GFR NON-AFRICAN AMERICAN > 60
[2017-05-05] MEDS ORDERED: Lactated Ringer's 1,000 ML IV ONE ×2 (14:30→16:54)
[2017-05-05] MEDS ORDERED: Bupivacaine 0.5% Inj(30mL) ONE (14:35)
[2017-05-05] MEDS ORDERED: metroNIDAZOLE 500mg/100ml NS IVPB ONE (14:35)
[2017-05-05] MEDS ORDERED: Bupivacaine HCl 0.5% PF (10 ml) Inj IJ ONE (15:00)
[2017-05-05] MEDS ORDERED: HYDROmorphone 0.5 mg/0.5 ml ISec ONE (17:10)
[2017-05-05] MEDS ORDERED: HYDROmorphone 0.5 mg/0.5 ml ISec IVP PRN (17:43)
[2017-05-05] MEDS ORDERED: Lactated Ringer's 1,000 ML IV SCH (17:45)
[2017-05-05] MEDS: Potassium Chl 40 mEq in D5-NS 1,000 ML IV SCH (21:37)
--- NOTE | 2017-05-05 21:55 | OP ---
INTRAOPERATIVE CONSULT WELL OPERATIVE REPORT PROCEDURE DATE: 05/05/2017 PREOPERATIVE DIAGNOSIS: Left tubo-ovarian abscess. POSTOPERATIVE DIAGNOSES: 1. Acute appendicitis with possible perforation and phlegmonous changes. 2. Less likely tubo-ovarian abscess as per OBGYN team PROCEDURE DONE: 1. Laparoscopic appendectomy. 2. Laparoscopic drainage of pelvic abscess. SURGEON: Boogie White MD ASSISTANTS: Dr. Fonseca and Dr. Isaac. TYPE OF ANESTHESIA: General endotracheal tube anesthesia. ESTIMATED BLOOD LOSS: Around 10 mL. DRAINS: None. PATHOLOGY: Appendix was sent for the pathology. COMPLICATIONS: None. INTRAOPERATIVE FINDINGS: The patient had extremely thickened and edematous appendix with possible perforation with surrounding abscess and the patient could have tubo-ovarian abscess. There was extensive inflammation and abscess of the pelvis area. This procedure was done as an intraoperative consults during OB-VEHICLE GLASS TECHNICIAN procedure of laparoscopic drainage of tubo-ovarian abscess and Possible salpingectomy. DESCRIPTION OF PROCEDURE: On intraoperative steps, this is a 46-year-old female who was seen as an intraoperative consults during TESTER PRINTED CIRCUIT BOARDS procedure of laparoscopic drainage of tubo-ovarian abscess as well as possible salpingectomy and appendix appeared to be extremely thickened and edematous. There was a slough around the appendix with a possible field of perforation and appendectomy procedure was done by me. The extra 5-mm port was placed in a suprapubic region and the mesoappendix was resected with harmonic scalpel. Base of the appendix was resected with LOS and a proper hemostasis was achieved. The patient also had a pelvic abscess. The pelvic abscess was drained and inside the drain, the 19-Namibian Keith drain was placed. Now, the 19-Namibian Keith drain was placed after suction and irrigation of the pelvis, perihepatic area as well as a periappendicular area. As per TESTER PRINTED CIRCUIT BOARDS team, this is less likely due to the tubo-ovarian abscess. After proper hemostasis and after removing the appendix with a 12-mm port, all the port was taken out under vision. Pneumo was deflated. The 12-mm left lower quadrant port site was closed in 2 layers, fascia with the 0 Vicryl, skin with the 4-0 Monocryl, and all the 5-mm port site was closed with fibrin glue and drain was secured to the skin with 2-0 silk suture and dry sterile dressing was applied. The patient tolerated the procedure well. Count of the instrument and gauze was correct. There was no apparent complication. The patient was extubated in the OR and sent to the Postanesthesia Care Unit in stable condition. Boogie White MD MTDSaeed
[2017-05-06] MEDS: metroNIDAZOLE 500mg/100ml NS 100 ML IVPB SCH ×4 (04:47→21:41)
[2017-05-06 05:59] LABS: BASO % 0.3 % (0.0-2.0); EOS % 0.2 % (0.0-4.0); HEMOGLOBIN 9.2 g/dL (12.0-16.0); LYMPH # 0.6 K/uL (1.0-4.3); LYMPH % 4.5 % (20.0-40.0); MEAN CELL VOLUME 75.5 fl (81.0-99.0); MEAN CORPUSCULAR HEMOGLOBIN 24.4 pg (27.0-31.0); MEAN CORPUSCULAR HGB CONC 32.4 g/dL (33.0-37.0); MEAN PLATELET VOLUME 8.8 fl (7.2-11.7); MONO # 0.5 K/uL (0.0-0.8); MONO % 3.6 % (0.0-10.0); NEUT # 12.6 K/uL (1.8-7.0); NEUT % 91.4 % (50.0-75.0); PLATELET COUNT 208 K/uL (130-400); RBC 3.78 Mil/uL (3.80-5.20); RED CELL DISTRIBUTION WIDTH 17.9 % (11.5-14.5); WHITE BLOOD COUNT 13.8 K/uL (4.8-10.8)
[2017-05-06 06:26] LABS: ALB/GLOB RATIO 0.7 (1.0-2.1); ALBUMIN 2.2 g/dL (3.5-5.0); ALT/SGPT 29 U/L (9-52); AST/SGOT 16 U/L (14-36); BLOOD UREA NITROGEN 9 mg/dl (7-17); CALCIUM 7.5 mg/dL (8.4-10.2); GFR AFRICAN-AMERICAN > 60; GFR NON-AFRICAN AMERICAN > 60
[2017-05-06] MEDS: Gentamicin 100mg/100ml NS 100 MG/100 ML BAG IVPB SCH ×2 (08:16→21:35)
[2017-05-06] MEDS: Enoxaparin 40 mg Syringe SC SCH (08:17)
--- NOTE | 2017-05-06 08:21 | CP.PCM.PN ---
<Steven Tiwari - Last Filed: 05/06/17 08:19> Subjective - Date & Time of Evaluation Date of Evaluation: 05/06/17 Time of Evaluation: 08:19 - Subjective Subjective: Surgery Progress note: Dr. White 46 year old female seen and evaluated at bedside this morning. Denies of any acute overnight events. Reports of mild pain today. Denies any F/N/V/C/SOB/CP/ headache. Denies of any other complains now. Objective - Vital Signs/Intake and Output Vital Signs (last 24 hours): Temp Pulse Resp BP Pulse Ox 98.7 F 114 H 20 103/67 99 05/06/17 08:15 05/06/17 08:15 05/06/17 08:15 05/06/17 08:15 05/06/17 08:15 Intake and Output: 05/06/17 05/06/17 06:59 18:59 Intake Total 1600 Output Total 720 Balance 880 - Medications Medications: Current Medications Acetaminophen (Tylenol 325mg Tab) 650 mg PO Q6 PRN PRN Reason: Pain, Mild (1-3) Acetaminophen (Tylenol 325mg Tab) 650 mg PO Q6 PRN PRN Reason: Fever >100.4 F Enoxaparin Sodium (Lovenox) 40 mg SC DAILY PATRICIA PRN Reason: Protocol Last Admin: 05/06/17 08:17 Dose: 40 mg Hydromorphone HCl (Dilaudid 0.2 Mg/Ml Cota) 0 mg IV PRN PRN; Protocol PRN Reason: Pain, moderate (4-7) Last Admin: 05/05/17 18:30 Dose: 0.2 mg Doxycycline Hyclate 100 mg/ (Sodium Chloride) 100 mls @ 100 mls/hr IVPB Q12 PATRICIA PRN Reason: Protocol Last Admin: 05/05/17 21:32 Dose: 100 mls/hr Gentamicin Sulfate/Sodium Chloride (Gentamicin 100mg/100ml Ns) 100 mg in 100 mls @ 100 mls/hr IVPB Q12 PATRICIA PRN Reason: Protocol Last Admin: 05/06/17 08:16 Dose: 100 mls/hr Metronidazole (Flagyl 500mg/100ml Ns) 100 mls @ 100 mls/hr IVPB Q8@0500,1300, 2100 PATRICIA PRN Reason: Protocol Last Admin: 05/06/17 04:47 Dose: 100 mls/hr Potassium Chloride/Dextrose/Sod Cl (D5-Ns1l+40meq Kcl) 1,000 mls @ 125 mls/hr IV .Q8H PATRICIA Last Admin: 05/05/17 21:37 Dose: 125 mls/hr Clindamycin Phosphate 600 mg/ (Dextrose) 54 mls @ 54 mls/hr IVPB Q8 PATRICIA PRN Reason: Protocol Last Admin: 05/06/17 08:15 Dose: 54 mls/hr Oxycodone/Acetaminophen (Percocet 5/325 Mg Tab) 1 tab PO Q4 PRN PRN Reason: Pain, moderate (4-7) Stop: 05/07/17 16:43 Last Admin: 05/05/17 09:38 Dose: 1 tab - Labs Labs: 05/06/17 04:45 05/06/17 04:45 PT 14.2 Seconds (9.8-13.1) H 05/04/17 09:38 INR 1.3 (0.9-1.2) H 05/04/17 09:38 APTT 30.4 Seconds (25.6-37.1) 05/04/17 09:38 - Constitutional Appears: Well, Non-toxic, No Acute Distress - Head Exam Head Exam: ATRAUMATIC - ENT Exam ENT Exam: Normal Exam - Neck Exam Neck Exam: Full ROM - Respiratory Exam Respiratory Exam: NORMAL BREATHING PATTERN - GI/Abdominal Exam GI & Abdominal Exam: Soft, Tenderness. absent: Rigid, Hernia, Mass - Rectal Exam Rectal Exam: Deferred - Extremities Exam Extremities Exam: Normal Inspection - Back Exam Back Exam: NORMAL INSPECTION. absent: tenderness - Neurological Exam Neurological Exam: Alert, Awake, Oriented x3 - Psychiatric Exam Psychiatric exam: Normal Affect, Normal Mood - Skin Skin Exam: Intact, Normal Color, Warm Assessment and Plan - Assessment and Plan (Free Text) Assessment: 46 year old female 1 day s/p appendectomy Plan: - Continue Abx - NPO - Pain control - Monitor drain output Further recs as per Dr. White <Boogie White - Last Filed: 05/09/17 15:48> Objective - Vital Signs/Intake and Output Vital Signs (last 24 hours): Temp Pulse Resp BP Pulse Ox 100.2 F H 93 H 16 116/74 100 03/25/18 12:27 05/09/17 12:27 05/09/17 12:27 05/09/17 12:27 05/09/17 12:27 - Medications Medications: Current Medications Acetaminophen (Tylenol 325mg Tab) 650 mg PO Q6 PRN PRN Reason: Pain, Mild (1-3) Acetaminophen (Tylenol 325mg Tab) 650 mg PO Q6 PRN PRN Reason: Fever >100.4 F Last Admin: 05/06/17 15:19 Dose: 650 mg Hydromorphone HCl (Dilaudid) 0.5 mg IVP Q4 PRN PRN Reason: Pain, severe (8-10) Metronidazole (Flagyl 500mg/100ml Ns) 100 mls @ 100 mls/hr IVPB Q8@0500,1300, 2100 PATRICIA PRN Reason: Protocol Last Admin: 05/09/17 04:44 Dose: 100 mls/hr Vancomycin HCl 1 gm/ Sodium (Chloride) 250 mls @ 166.667 mls/hr IVPB Q12 PATRICIA PRN Reason: Protocol Last Admin: 05/09/17 09:17 Dose: 166.667 mls/hr Gentamicin Sulfate/Sodium Chloride (Gentamicin 60mg/50ml Ns) 60 mg in 50 mls @ 50 mls/hr IVPB Q12@0900,2100 PATRICIA PRN Reason: Protocol Last Admin: 05/09/17 09:16 Dose: 50 mls/hr Doxycycline Hyclate 100 mg/ (Sodium Chloride) 100 mls @ 100 mls/hr IVPB Q12 PATRICIA PRN Reason: Protocol - Labs Labs: 05/09/17 05:58 05/09/17 05:58 PT 14.2 Seconds (9.8-13.1) H 05/04/17 09:38 INR 1.3 (0.9-1.2) H 05/04/17 09:38 APTT 30.4 Seconds (25.6-37.1) 05/04/17 09:38 Attending/Attestation - Attestation I have personally seen and examined this patient.: Yes I have fully participated in the care of the patient.: Yes I have reviewed all pertinent clinical information, including history, physical exam and plan: Yes Notes (Text): Pt was seen and examined at bedside Agree with above note and assessment Pt is improving clinically repeat CBC in am Reg diet Replace potassium c.w current ms Plan d.w pt in detail Risk and benefit explained in detail.
--- NOTE | 2017-05-06 08:55 | CP.PCM.PN ---
<Sultan Juan - Last Filed: 05/06/17 09:21> Subjective - Date & Time of Evaluation Date of Evaluation: 05/06/17 Time of Evaluation: 08:45 - Subjective Subjective: CLINIC ADMINISTRATOR progress note for Dr. Page Pt was seen and examined at bedside this morning. Pt reports mild abdominal pain with drainage in place. Pain is controlled with pain medication. Pt is tolerating po liquid. Denies nausea, vomiting, fever, chills, chest pain or dyspnea. Denies any BM or flatus after surgery. Objective - Vital Signs/Intake and Output Vital Signs (last 24 hours): Temp Pulse Resp BP Pulse Ox 98.7 F 114 H 20 103/67 99 05/06/17 08:15 05/06/17 08:15 05/06/17 08:15 05/06/17 08:15 05/06/17 08:15 Intake and Output: 05/06/17 05/06/17 06:59 18:59 Intake Total 1600 Output Total 720 Balance 880 - Medications Medications: Current Medications Acetaminophen (Tylenol 325mg Tab) 650 mg PO Q6 PRN PRN Reason: Pain, Mild (1-3) Acetaminophen (Tylenol 325mg Tab) 650 mg PO Q6 PRN PRN Reason: Fever >100.4 F Enoxaparin Sodium (Lovenox) 40 mg SC DAILY PATRICIA PRN Reason: Protocol Last Admin: 05/06/17 08:17 Dose: 40 mg Hydromorphone HCl (Dilaudid 0.2 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) 0 mg IV PRN PRN; Protocol PRN Reason: Pain, moderate (4-7) Last Admin: 05/05/17 18:30 Dose: 0.2 mg Doxycycline Hyclate 100 mg/ (Sodium Chloride) 100 mls @ 100 mls/hr IVPB Q12 PATRICIA PRN Reason: Protocol Last Admin: 05/06/17 08:19 Dose: 100 mls/hr Gentamicin Sulfate/Sodium Chloride (Gentamicin 100mg/100ml Ns) 100 mg in 100 mls @ 100 mls/hr IVPB Q12 PATRICIA PRN Reason: Protocol Last Admin: 05/06/17 08:16 Dose: 100 mls/hr Metronidazole (Flagyl 500mg/100ml Ns) 100 mls @ 100 mls/hr IVPB Q8@0500,1300, 2100 PATRICIA PRN Reason: Protocol Last Admin: 05/06/17 04:47 Dose: 100 mls/hr Potassium Chloride/Dextrose/Sod Cl (D5-Ns1l+40meq Kcl) 1,000 mls @ 125 mls/hr IV .Q8H [facility] Last Admin: 05/05/17 21:37 Dose: 125 mls/hr Clindamycin Phosphate 600 mg/ (Dextrose) 54 mls @ 54 mls/hr IVPB Q8 PATRICIA PRN Reason: Protocol Last Admin: 05/06/17 08:15 Dose: 54 mls/hr Oxycodone/Acetaminophen (Percocet 5/325 Mg Tab) 1 tab PO Q4 PRN PRN Reason: Pain, moderate (4-7) Stop: 05/07/17 16:43 Last Admin: 05/05/17 09:38 Dose: 1 tab - Labs Labs: 05/06/17 04:45 05/06/17 04:45 PT 14.2 Seconds (9.8-13.1) H 05/04/17 09:38 INR 1.3 (0.9-1.2) H 05/04/17 09:38 APTT 30.4 Seconds (25.6-37.1) 05/04/17 09:38 - Constitutional Appears: Well, No Acute Distress - Respiratory Exam Respiratory Exam: Clear to Ausculation Bilateral, NORMAL BREATHING PATTERN. absent: Rhonchi, Wheezes - Cardiovascular Exam Cardiovascular Exam: Tachycardia, REGULAR RHYTHM, +S1, +S2 - GI/Abdominal Exam GI & Abdominal Exam: Soft, Normal Bowel Sounds. absent: Distended Additional comments: Mild appropriate tender to palpation. [place]-Keith drain in place. Serosanguinous drainage seen. - Extremities Exam Extremities Exam: Normal Inspection. absent: Calf Tenderness - Neurological Exam Neurological Exam: Alert, Awake, Oriented x3 Assessment and Plan - Assessment and Plan (Free Text) Assessment: Assessment: 46 yo admitted on 05/04/17 for PID with pelvic abscess, s/p laparscopic drainage of pelvic abscess, laparoscopic appendectomy and IUD removal yesterday, on POD 1 Plan: 1.PID w/ pelvic abscess s/p laparoscopic drainage of pelvic abscess on 05/05/17 -S/P IUD removed yesterday. -[place]-Keith drainage in place. 120 cc drainage in 12 hours. -Monitor drainage output -Continue with abx management as per ID recommendation and primary team 2. Laparoscopic appendectomy -Continue with abx -Monitor drainage output. Case d/w on-call OB Hospitalist Dr. Camilo Martinez, pgy-1 <Luanne Page - Last Filed: 05/06/17 21:25> Objective - Vital Signs/Intake and Output Vital Signs (last 24 hours): Temp Pulse Resp BP Pulse Ox 98.5 F 114 H 16 109/75 96 05/06/17 20:10 05/06/17 20:10 05/06/17 20:10 05/06/17 20:10 05/06/17 20:10 Intake and Output: 05/06/17 05/07/17 18:59 06:59 Intake Total 2020 Output Total 50 Balance 1970 - Medications Medications: Current Medications Acetaminophen (Tylenol 325mg Tab) 650 mg PO Q6 PRN PRN Reason: Pain, Mild (1-3) Acetaminophen (Tylenol 325mg Tab) 650 mg PO Q6 PRN PRN Reason: Fever >100.4 F Last Admin: 05/06/17 15:19 Dose: 650 mg Enoxaparin Sodium (Lovenox) 40 mg SC DAILY PATRICIA PRN Reason: Protocol Last Admin: 05/06/17 08:17 Dose: 40 mg Hydromorphone HCl (Dilaudid) 0.5 mg IVP Q4 PRN PRN Reason: Pain, severe (8-10) Doxycycline Hyclate 100 mg/ (Sodium Chloride) 100 mls @ 100 mls/hr IVPB Q12 PATRICIA PRN Reason: Protocol Last Admin: 05/06/17 08:19 Dose: 100 mls/hr Gentamicin Sulfate/Sodium Chloride (Gentamicin 100mg/100ml Ns) 100 mg in 100 mls @ 100 mls/hr IVPB Q12 PATRICIA PRN Reason: Protocol Last Admin: 05/06/17 08:16 Dose: 100 mls/hr Metronidazole (Flagyl 500mg/100ml Ns) 100 mls @ 100 mls/hr IVPB Q8@0500,1300, 2100 PATRICIA PRN Reason: Protocol Last Admin: 05/06/17 12:16 Dose: 100 mls/hr Potassium Chloride/Dextrose/Sod Cl (D5-Ns1l+40meq Kcl) 1,000 mls @ 125 mls/hr IV .Q8H PATRICIA Last Admin: 05/06/17 12:17 Dose: 125 mls/hr Clindamycin Phosphate 600 mg/ (Dextrose) 54 mls @ 54 mls/hr IVPB Q8 PATRICIA PRN Reason: Protocol Last Admin: 05/06/17 16:36 Dose: 54 mls/hr Vancomycin HCl 1 gm/ Sodium (Chloride) 250 mls @ 166.667 mls/hr IVPB Q12 PATRICIA PRN Reason: Protocol Last Admin: 05/06/17 20:01 Dose: 166.667 mls/hr Oxycodone/Acetaminophen (Percocet 5/325 Mg Tab) 1 tab PO Q4 PRN PRN Reason: Pain, moderate (4-7) Stop: 05/07/17 16:43 Last Admin: 05/05/17 09:38 Dose: 1 tab - Labs Labs: 05/06/17 04:45 05/06/17 04:45 PT 14.2 Seconds (9.8-13.1) H 05/04/17 09:38 INR 1.3 (0.9-1.2) H 05/04/17 09:38 APTT 30.4 Seconds (25.6-37.1) 05/04/17 09:38 Assessment and Plan - Assessment and Plan (Free Text) Assessment: OB Hospitalist Addendum: Patient seen and examined by me. Agree w/ above. 46 yo admitted on 05/04/2017 w/ abdominal pain, POD 1 s/p laparoscopic drainage of pelvic abscess, appendectomy and IUD removal. Pt reports that she is feeling much better, tolerating regular diet. (ES)
[2017-05-06 09:57] LABS: ANISOCYTOSIS SLIGHT; BANDS 1 % (0-2); HYPOCHROMIC SLIGHT; LYMPHOCYTE 4 % (20-50); MICROCYTOSIS SLIGHT; MONOCYTE 4 % (0-10); NEUTROPHIL 90 % (42-75); PLATELET ESTIMATE NORMAL (NORMAL); REACTIVE LYMPHOCYTES 1 % (0-0); TOTAL CELLS COUNTED 100
[2017-05-06 09:58] LABS: BURR CELLS SLIGHT; OVALOCYTES SLIGHT; PLATELET CLUMPS PRESENT; SCHISTOCYTES SLIGHT; TEARDROP CELLS SLIGHT; TOXIC GRANULATION PRESENT
[2017-05-06] MEDS: Potassium Chl 40 mEq in D5-NS 1,000 ML IV SCH (12:17)
--- NOTE | 2017-05-06 14:28 | CP.PCM.PN ---
Subjective - Date & Time of Evaluation Date of Evaluation: 05/06/17 Time of Evaluation: 12:30 - Subjective Subjective: Pt is febrile however states she feels better that previous days post op pain controlled tolerated clear liquid diet still tachycardic but better no CP no SOB MICHELLE drainage 120 ml overnight Objective - Vital Signs/Intake and Output Vital Signs (last 24 hours): Temp Pulse Resp BP Pulse Ox 99.2 F 124 H 20 110/68 99 05/06/17 12:28 05/06/17 12:28 05/06/17 12:28 05/06/17 12:28 05/06/17 12:28 Intake and Output: 05/06/17 05/06/17 06:59 18:59 Intake Total 1600 Output Total 720 Balance 880 - Medications Medications: Current Medications Acetaminophen (Tylenol 325mg Tab) 650 mg PO Q6 PRN PRN Reason: Pain, Mild (1-3) Acetaminophen (Tylenol 325mg Tab) 650 mg PO Q6 PRN PRN Reason: Fever >100.4 F Enoxaparin Sodium (Lovenox) 40 mg SC DAILY PATRICIA PRN Reason: Protocol Last Admin: 05/06/17 08:17 Dose: 40 mg Hydromorphone HCl (Dilaudid 0.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) 0 mg IV PRN PRN; Protocol PRN Reason: Pain, moderate (4-7) Last Admin: 05/05/17 18:30 Dose: 0.2 mg Doxycycline Hyclate 100 mg/ (Sodium Chloride) 100 mls @ 100 mls/hr IVPB Q12 PATRICIA PRN Reason: Protocol Last Admin: 05/06/17 08:19 Dose: 100 mls/hr Gentamicin Sulfate/Sodium Chloride (Gentamicin 100mg/100ml Ns) 100 mg in 100 mls @ 100 mls/hr IVPB Q12 PATRICIA PRN Reason: Protocol Last Admin: 05/06/17 08:16 Dose: 100 mls/hr Metronidazole (Flagyl 500mg/100ml Ns) 100 mls @ 100 mls/hr IVPB Q8@0500,1300, 2100 PATRICIA PRN Reason: Protocol Last Admin: 05/06/17 12:16 Dose: 100 mls/hr Potassium Chloride/Dextrose/Sod Cl (D5-Ns1l+40meq Kcl) 1,000 mls @ 125 mls/hr IV .Q8H [facility] Last Admin: 05/06/17 12:17 Dose: 125 mls/hr Clindamycin Phosphate 600 mg/ (Dextrose) 54 mls @ 54 mls/hr IVPB Q8 PATRICIA PRN Reason: Protocol Last Admin: 05/06/17 08:15 Dose: 54 mls/hr Oxycodone/Acetaminophen (Percocet 5/325 Mg Tab) 1 tab PO Q4 PRN PRN Reason: Pain, moderate (4-7) Stop: 05/07/17 16:43 Last Admin: 05/05/17 09:38 Dose: 1 tab - Labs Labs: 05/06/17 04:45 05/06/17 04:45 PT 14.2 Seconds (9.8-13.1) H 05/04/17 09:38 INR 1.3 (0.9-1.2) H 05/04/17 09:38 APTT 30.4 Seconds (25.6-37.1) 05/04/17 09:38 - Constitutional Appears: nontoxic, No Acute Distress - Head Exam Head Exam: ATRAUMATIC, NORMAL INSPECTION, NORMOCEPHALIC - Eye Exam Eye Exam: EOMI, Normal appearance, PERRL Pupil Exam: NORMAL ACCOMMODATION - ENT Exam ENT Exam: Mucous Membranes Dry, Normal External Ear Exam - Neck Exam Neck Exam: Full ROM. absent: Meningismus - Respiratory Exam Respiratory Exam: NORMAL BREATHING PATTERN. absent: Rales, Rhonchi, Wheezes, Respiratory Distress - Cardiovascular Exam Cardiovascular Exam: Tachycardia, REGULAR RHYTHM, +S1, +S2 - GI/Abdominal Exam GI & Abdominal Exam: dressing in place, MICHELLE drain in place with some serosanguinous drainage, + tenderness, normoactive BS - Extremities Exam Extremities Exam: Full ROM, Normal Capillary Refill. absent: Calf Tenderness, Pedal Edema - Back Exam Back Exam: Full ROM. absent: CVA tenderness (L), CVA tenderness (R), paraspinal tenderness, vertebral tenderness - Neurological Exam Neurological Exam: Alert, Awake, CN II-XII Intact, Normal Gait, Oriented x3 Neuro motor strength exam: Left Upper Extremity: 5, Right Upper Extremity: 5, Left Lower Extremity: 5, Right Lower Extremity: 5 - Psychiatric Exam Psychiatric exam: Normal Affect, Normal Mood - Skin Skin Exam: Dry, Normal Color, Warm Assessment and Plan (1) Sepsis Status: Acute (2) Tubo-ovarian abscess Status: Acute (3) Infection associated with intrauterine device (IUD) Status: Acute (4) DVT prophylaxis Status: Acute - Assessment and Plan (Free Text) Assessment: 46 y/o lady , no significant PMH , has an IUD in place x more than 10 years, came in bec of fever and abdominal pain. CT of the Abdomen : - FINDINGS HIGHLY SUSPICIOUS FOR PERITONITIS, ASSOCIATED WITH COMPLEX PELVIC AND ABDOMINAL FREE FLUID. THIS IS MOST LIKELY SECONDARY TO A 10 x 3 CM LEFT- SIDED TUBO-OVARIAN ABSCESS. - IUD or retained portion of an IUD in the uterus. 05/05 : Pt underwent Explor Lap - Appendectomy , drainage of pelvic abscess (1) Sepsis with Peritonitis sec to Ruptured Appendicitis with phlegmon less likely Tubo-ovarian abscess , s/p Lap Appendectomy and drainage of Pelvic Abscess - Surgery and regulatory agency director on case - cont IV Clindamycin, Doxycycline , Genta and Flagyl, Vancomycin also added by ID - ID: Dr Archer following pt - cont IVF hydration - Pain mgt - monitor MICHELLE drain output -pt tolerating Clear liquid diet (2) Retained intrauterine device (IUD) , s/p removal during surgery Status: Acute (3) DVT prophylaxis Status: Acute start Lovenox
--- NOTE | 2017-05-06 16:35 | CP.PCM.PN ---
Subjective - Date & Time of Evaluation Date of Evaluation: 05/06/17 Time of Evaluation: 16:30 - Subjective Subjective: I D NOTE IST POST-OP DAY PATH PENDING :PERFORATED APPENDIX TUBO-OVARIAN ABSCESS HAD TEMP 102 TODAY HAVE ADDED VANCOMYCIN FOR ENTEROCOCCUS COVERAGE MAY DC CLINDAMYCIN TOMORROW PENDING CLINICAL FINDINGS Objective - Vital Signs/Intake and Output Vital Signs (last 24 hours): Temp Pulse Resp BP Pulse Ox 101.3 F H 131 H 18 106/68 96 05/06/17 16:20 05/06/17 16:20 05/06/17 16:20 05/06/17 16:20 05/06/17 16:20 Intake and Output: 05/06/17 05/06/17 06:59 18:59 Intake Total 1600 Output Total 720 Balance 880 - Medications Medications: Current Medications Acetaminophen (Tylenol 325mg Tab) 650 mg PO Q6 PRN PRN Reason: Pain, Mild (1-3) Acetaminophen (Tylenol 325mg Tab) 650 mg PO Q6 PRN PRN Reason: Fever >100.4 F Last Admin: 05/06/17 15:19 Dose: 650 mg Enoxaparin Sodium (Lovenox) 40 mg SC DAILY PATRICIA PRN Reason: Protocol Last Admin: 05/06/17 08:17 Dose: 40 mg Hydromorphone HCl (Dilaudid) 0.5 mg IVP Q4 PRN PRN Reason: Pain, severe (8-10) Doxycycline Hyclate 100 mg/ (Sodium Chloride) 100 mls @ 100 mls/hr IVPB Q12 PATRICIA PRN Reason: Protocol Last Admin: 05/06/17 08:19 Dose: 100 mls/hr Gentamicin Sulfate/Sodium Chloride (Gentamicin 100mg/100ml Ns) 100 mg in 100 mls @ 100 mls/hr IVPB Q12 PATRICIA PRN Reason: Protocol Last Admin: 05/06/17 08:16 Dose: 100 mls/hr Metronidazole (Flagyl 500mg/100ml Ns) 100 mls @ 100 mls/hr IVPB Q8@0500,1300, 2100 PATRICIA PRN Reason: Protocol Last Admin: 05/06/17 12:16 Dose: 100 mls/hr Potassium Chloride/Dextrose/Sod Cl (D5-Ns1l+40meq Kcl) 1,000 mls @ 125 mls/hr IV .Q8H [facility] Last Admin: 05/06/17 12:17 Dose: 125 mls/hr Clindamycin Phosphate 600 mg/ (Dextrose) 54 mls @ 54 mls/hr IVPB Q8 PATRICIA PRN Reason: Protocol Last Admin: 05/06/17 08:15 Dose: 54 mls/hr Vancomycin HCl 1 gm/ Sodium (Chloride) 250 mls @ 166.667 mls/hr IVPB Q12 PATRICIA PRN Reason: Protocol Oxycodone/Acetaminophen (Percocet 5/325 Mg Tab) 1 tab PO Q4 PRN PRN Reason: Pain, moderate (4-7) Stop: 05/07/17 16:43 Last Admin: 05/05/17 09:38 Dose: 1 tab - Labs Labs: 05/06/17 04:45 05/06/17 04:45 PT 14.2 Seconds (9.8-13.1) H 05/04/17 09:38 INR 1.3 (0.9-1.2) H 05/04/17 09:38 APTT 30.4 Seconds (25.6-37.1) 05/04/17 09:38
[2017-05-07] MEDS: Oxycodone/Acetaminophen 5/325 mg Tab PO PRN (00:07)
[2017-05-07] MEDS: metroNIDAZOLE 500mg/100ml NS 100 ML IVPB SCH ×3 (05:00→23:00)
[2017-05-07 06:18] LABS: BASO % 0.3 % (0.0-2.0); EOS # 0.2 K/uL (0.0-0.7); EOS % 1.2 % (0.0-4.0); HEMOGLOBIN 8.6 g/dL (12.0-16.0); LYMPH # 0.7 K/uL (1.0-4.3); LYMPH % 5.7 % (20.0-40.0); MEAN CELL VOLUME 75.1 fl (81.0-99.0); MEAN CORPUSCULAR HEMOGLOBIN 24.4 pg (27.0-31.0); MEAN CORPUSCULAR HGB CONC 32.5 g/dL (33.0-37.0); MEAN PLATELET VOLUME 8.8 fl (7.2-11.7); MONO # 0.8 K/uL (0.0-0.8); MONO % 5.7 % (0.0-10.0); NEUT # 11.4 K/uL (1.8-7.0); NEUT % 87.1 % (50.0-75.0); RBC 3.52 Mil/uL (3.80-5.20); RED CELL DISTRIBUTION WIDTH 18.6 % (11.5-14.5); WHITE BLOOD COUNT 13.1 K/uL (4.8-10.8)
[2017-05-07 07:13] LABS: ALB/GLOB RATIO 0.7 (1.0-2.1); ALBUMIN 2.2 g/dL (3.5-5.0); ALT/SGPT 30 U/L (9-52); AST/SGOT 17 U/L (14-36); BLOOD UREA NITROGEN 6 mg/dl (7-17); CALCIUM 7.3 mg/dL (8.4-10.2); GFR AFRICAN-AMERICAN > 60; GFR NON-AFRICAN AMERICAN > 60
--- NOTE | 2017-05-07 08:07 | CP.PCM.PN ---
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 Butler Pt was seen and examined at bedside this morning. Pt reports she is feeling better than yesterday. Pt reports abdominal pain is controlled with pain medications. Had BM last night. Pt reports she is tolerating PO but has intermittent nausea. Denies any vomiting. No fever overnight. Denies chest pain , dyspnea or dizziness. Objective - Vital Signs/Intake and Output Vital Signs (last 24 hours): Temp Pulse Resp BP Pulse Ox 99.3 F 107 H 20 104/72 99 05/07/17 08:03 05/07/17 08:03 05/07/17 08:03 05/07/17 08:03 05/07/17 08:03 Intake and Output: 05/07/17 05/07/17 06:59 18:59 Intake Total 2400 Output Total 30 Balance 2370 - Medications Medications: Current Medications Acetaminophen (Tylenol 325mg Tab) 650 mg PO Q6 PRN PRN Reason: Pain, Mild (1-3) Acetaminophen (Tylenol 325mg Tab) 650 mg PO Q6 PRN PRN Reason: Fever >100.4 F Last Admin: 05/06/17 15:19 Dose: 650 mg Enoxaparin Sodium (Lovenox) 40 mg SC DAILY PATRICIA PRN Reason: Protocol Last Admin: 05/06/17 08:17 Dose: 40 mg Hydromorphone HCl (Dilaudid) 0.5 mg IVP Q4 PRN PRN Reason: Pain, severe (8-10) Doxycycline Hyclate 100 mg/ (Sodium Chloride) 100 mls @ 100 mls/hr IVPB Q12 PATRICIA PRN Reason: Protocol Last Admin: 05/06/17 22:28 Dose: 100 mls/hr Gentamicin Sulfate/Sodium Chloride (Gentamicin 100mg/100ml Ns) 100 mg in 100 mls @ 100 mls/hr IVPB Q12 PATRICIA PRN Reason: Protocol Last Admin: 05/06/17 21:35 Dose: 100 mls/hr Metronidazole (Flagyl 500mg/100ml Ns) 100 mls @ 100 mls/hr IVPB Q8@0500,1300, 2100 PATRICIA PRN Reason: Protocol Last Admin: 05/06/17 21:41 Dose: 100 mls/hr Potassium Chloride/Dextrose/Sod Cl (D5-Ns1l+40meq Kcl) 1,000 mls @ 125 mls/hr IV .Q8H [facility] Last Admin: 05/06/17 12:17 Dose: 125 mls/hr Clindamycin Phosphate 600 mg/ (Dextrose) 54 mls @ 54 mls/hr IVPB Q8 PATRICIA PRN Reason: Protocol Last Admin: 05/07/17 00:23 Dose: 54 mls/hr Vancomycin HCl 1 gm/ Sodium (Chloride) 250 mls @ 166.667 mls/hr IVPB Q12 PATRICIA PRN Reason: Protocol Last Admin: 05/06/17 20:01 Dose: 166.667 mls/hr Oxycodone/Acetaminophen (Percocet 5/325 Mg Tab) 1 tab PO Q4 PRN PRN Reason: Pain, moderate (4-7) Stop: 05/07/17 16:43 Last Admin: 05/07/17 00:07 Dose: 1 tab - Labs Labs: 05/07/17 05:30 05/07/17 05:30 PT 14.2 Seconds (9.8-13.1) H 05/04/17 09:38 INR 1.3 (0.9-1.2) H 05/04/17 09:38 APTT 30.4 Seconds (25.6-37.1) 05/04/17 09:38 - Constitutional Appears: No Acute Distress - Respiratory Exam Respiratory Exam: Clear to Ausculation Bilateral, NORMAL BREATHING PATTERN. absent: Rales, Rhonchi - Cardiovascular Exam Cardiovascular Exam: Tachycardia, REGULAR RHYTHM, +S1, +S2 - GI/Abdominal Exam GI & Abdominal Exam: Soft, Normal Bowel Sounds. absent: Distended Additional comments: Mild appropriate tender to palpation. MICHELLE drain in place with serosanguinous drainage visible. - Neurological Exam Neurological Exam: Alert, Awake, Oriented x3 Assessment and Plan - Assessment and Plan (Free Text) Assessment: Assessment: 46 yo admitted on 05/04/17 for PID with pelvic abscess, s/p laparscopic drainage of pelvic abscess, laparoscopic appendectomy and IUD removal on 05/05/17, today is POD 2 Plan: 1.PID w/ pelvic abscess s/p laparoscopic drainage of pelvic abscess on 05/05/17 -S/P IUD removed on 05/05/17. -Stateless-Keith drainage in place. 80 cc serosanguinous drainage in 24 hrs. -Continue monitor drainage output -F/U blood cx and wound cx -Continue with abx management as per Dr. Archer's recommendation and primary team 2. Laparoscopic appendectomy -Continue with abx -Monitor drainage output Case d/w on-call OB Hospitalist Dr. Luke Martinez, pgy-1 <Raymundo Butler - Last Filed: 05/07/17 13:18> Objective - Vital Signs/Intake and Output Vital Signs (last 24 hours): Temp Pulse Resp BP Pulse Ox 99.1 F 108 H 18 106/74 99 05/07/17 12:00 05/07/17 12:00 05/07/17 12:00 05/07/17 12:00 05/07/17 12:00 Intake and Output: 05/07/17 05/07/17 06:59 18:59 Intake Total 2400 Output Total 30 Balance 2370 - Medications Medications: Current Medications Acetaminophen (Tylenol 325mg Tab) 650 mg PO Q6 PRN PRN Reason: Pain, Mild (1-3) Acetaminophen (Tylenol 325mg Tab) 650 mg PO Q6 PRN PRN Reason: Fever >100.4 F Last Admin: 05/06/17 15:19 Dose: 650 mg Enoxaparin Sodium (Lovenox) 40 mg SC DAILY PATRICIA PRN Reason: Protocol Last Admin: 05/07/17 08:19 Dose: 40 mg Hydromorphone HCl (Dilaudid) 0.5 mg IVP Q4 PRN PRN Reason: Pain, severe (8-10) Doxycycline Hyclate 100 mg/ (Sodium Chloride) 100 mls @ 100 mls/hr IVPB Q12 PATRICIA PRN Reason: Protocol Last Admin: 05/07/17 08:14 Dose: 100 mls/hr Gentamicin Sulfate/Sodium Chloride (Gentamicin 100mg/100ml Ns) 100 mg in 100 mls @ 100 mls/hr IVPB Q12 PATRICIA PRN Reason: Protocol Last Admin: 05/07/17 08:13 Dose: 100 mls/hr Metronidazole (Flagyl 500mg/100ml Ns) 100 mls @ 100 mls/hr IVPB Q8@0500,1300, 2100 PATRICIA PRN Reason: Protocol Last Admin: 05/06/17 21:41 Dose: 100 mls/hr Vancomycin HCl 1 gm/ Sodium (Chloride) 250 mls @ 166.667 mls/hr IVPB Q12 PATRICIA PRN Reason: Protocol Last Admin: 05/07/17 08:18 Dose: 166.667 mls/hr Oxycodone/Acetaminophen (Percocet 5/325 Mg Tab) 1 tab PO Q4 PRN PRN Reason: Pain, moderate (4-7) Stop: 05/07/17 16:43 Last Admin: 05/07/17 00:07 Dose: 1 tab - Labs Labs: 05/07/17 05:30 05/07/17 05:30 PT 14.2 Seconds (9.8-13.1) H 05/04/17 09:38 INR 1.3 (0.9-1.2) H 05/04/17 09:38 APTT 30.4 Seconds (25.6-37.1) 05/04/17 09:38 Assessment and Plan - Assessment and Plan (Free Text) Plan: OB Hospitalist on-call : On jemal at 11am, I saw and examined this patient. Her condition and operation were explained. She understood. Her questions answered...agree with PGY1 note - juliana
[2017-05-07] MEDS: Gentamicin 100mg/100ml NS 100 MG/100 ML BAG IVPB SCH (08:13)
[2017-05-07] MEDS: Enoxaparin 40 mg Syringe SC SCH (08:19)
--- NOTE | 2017-05-07 08:24 | CP.PCM.PN ---
Subjective - Date & Time of Evaluation Date of Evaluation: 05/07/17 Time of Evaluation: 08:24 - Subjective Subjective: pt states she feels slightly improved, pain is well controlled, and has no complaints at this time. patient does appear to be weak, ambulates with mild difficulty. nausea controlled well with zofran. HD stable, NAD. Objective - Vital Signs/Intake and Output Vital Signs (last 24 hours): Temp Pulse Resp BP Pulse Ox 99.3 F 107 H 20 104/72 99 05/07/17 08:03 05/07/17 08:03 05/07/17 08:03 05/07/17 08:03 05/07/17 08:03 GENERAL APPEARANCE: Well developed, well nourished, alert and cooperative, and appears weak HEENT: normocephalic, atraumatic PERRL, EOMI. Vision is grossly intact. External auditory canals clear, hearing grossly intact. No nasal discharge. Oral cavity and pharynx normal. No inflammation, swelling, exudate, or lesions. NECK: Neck supple, non-tender without lymphadenopathy, masses or thyromegaly. CARDIAC: Normal S1 and S2. No S3, S4 or murmurs. Rhythm is regular. LUNGS: Clear to auscultation and percussion without rales, rhonchi, wheezing or diminished breath sounds. ABDOMEN: Positive bowel sounds. Soft, nondistended, tender to palpation in postoperative areas . No guarding or rebound. No masses. BACK: Examination of the spine reveals no spinal deformity, symmetry of spinal muscles, EXTREMITIES: No significant deformity or joint abnormality. No edema. NEUROLOGICAL: Strength and sensation symmetric and intact throughout. Reflexes 2 + throughout. SKIN: Skin normal color, texture and turgor with no lesions or eruptions. PSYCHIATRIC: The patient was oriented to person, place, and time. Normal affect. Intake and Output: 05/07/17 05/07/17 06:59 18:59 Intake Total 2400 Output Total 30 Balance 2370 - Medications Medications: Current Medications Acetaminophen (Tylenol 325mg Tab) 650 mg PO Q6 PRN PRN Reason: Pain, Mild (1-3) Acetaminophen (Tylenol 325mg Tab) 650 mg PO Q6 PRN PRN Reason: Fever >100.4 F Last Admin: 05/06/17 15:19 Dose: 650 mg Enoxaparin Sodium (Lovenox) 40 mg SC DAILY PATRICIA PRN Reason: Protocol Last Admin: 05/07/17 08:19 Dose: 40 mg Hydromorphone HCl (Dilaudid) 0.5 mg IVP Q4 PRN PRN Reason: Pain, severe (8-10) Doxycycline Hyclate 100 mg/ (Sodium Chloride) 100 mls @ 100 mls/hr IVPB Q12 PATRICIA PRN Reason: Protocol Last Admin: 05/07/17 08:14 Dose: 100 mls/hr Gentamicin Sulfate/Sodium Chloride (Gentamicin 100mg/100ml Ns) 100 mg in 100 mls @ 100 mls/hr IVPB Q12 PATRICIA PRN Reason: Protocol Last Admin: 05/07/17 08:13 Dose: 100 mls/hr Metronidazole (Flagyl 500mg/100ml Ns) 100 mls @ 100 mls/hr IVPB Q8@0500,1300, 2100 [facility] PRN Reason: Protocol Last Admin: 05/06/17 21:41 Dose: 100 mls/hr Potassium Chloride/Dextrose/Sod Cl (D5-Ns1l+40meq Kcl) 1,000 mls @ 125 mls/hr IV .Q8H [facility] Last Admin: 05/06/17 12:17 Dose: 125 mls/hr Clindamycin Phosphate 600 mg/ (Dextrose) 54 mls @ 54 mls/hr IVPB Q8 [facility] PRN Reason: Protocol Last Admin: 05/07/17 08:11 Dose: 54 mls/hr Vancomycin HCl 1 gm/ Sodium (Chloride) 250 mls @ 166.667 mls/hr IVPB Q12 [facility] PRN Reason: Protocol Last Admin: 05/07/17 08:18 Dose: 166.667 mls/hr Oxycodone/Acetaminophen (Percocet 5/325 Mg Tab) 1 tab PO Q4 PRN PRN Reason: Pain, moderate (4-7) Stop: 05/07/17 16:43 Last Admin: 05/07/17 00:07 Dose: 1 tab - Labs Labs: 05/07/17 05:30 05/07/17 05:30 PT 14.2 Seconds (9.8-13.1) H 05/04/17 09:38 INR 1.3 (0.9-1.2) H 05/04/17 09:38 APTT 30.4 Seconds (25.6-37.1) 05/04/17 09:38 Assessment and Plan - Assessment and Plan (Free Text) Plan: 46 y/o lady , no significant PMH , has an IUD in place x more than 10 years, came in bec of fever and abdominal pain. CT of the Abdomen : - FINDINGS HIGHLY SUSPICIOUS FOR PERITONITIS, ASSOCIATED WITH COMPLEX PELVIC AND ABDOMINAL FREE FLUID. THIS IS MOST LIKELY SECONDARY TO A 10 x 3 CM LEFT- SIDED TUBO-OVARIAN ABSCESS. - IUD or retained portion of an IUD in the uterus. 05/05 : Pt underwent Explor Lap - Appendectomy , drainage of pelvic abscess (1) Sepsis with Peritonitis sec to Ruptured Appendicitis with phlegmon less likely Tubo-ovarian abscess , s/p Lap Appendectomy and drainage of Pelvic Abscess - Surgery and store specialist on case - cont IV Doxycycline, Genta and Flagyl, Vancomycin also added by ID Clindamycin discontinued today - ID: Dr Archer following pt - cont IVF hydration - Pain mgt - monitor MICHELLE drain output -pt tolerating Clear liquid diet (2) Retained intrauterine device (IUD) , s/p removal during surgery Status: Acute (3) DVT prophylaxis Status: Acute start Lovenox
[2017-05-07] MEDS ORDERED: Potassium Chloride 20 mEq ER Tab PO ONE (12:20)
[2017-05-08] MEDS: Gentamicin 100mg/100ml NS 100 MG/100 ML BAG IVPB SCH ×2 (01:34→08:05)
[2017-05-08 07:10] LABS: BASO % 0.2 % (0.0-2.0); EOS # 0.1 K/uL (0.0-0.7); EOS % 1.1 % (0.0-4.0); HEMOGLOBIN 9.1 g/dL (12.0-16.0); LYMPH # 0.9 K/uL (1.0-4.3); LYMPH % 7.5 % (20.0-40.0); MEAN CORPUSCULAR HGB CONC 32.4 g/dL (33.0-37.0); MEAN PLATELET VOLUME 8.5 fl (7.2-11.7); MONO # 0.9 K/uL (0.0-0.8); MONO % 7.2 % (0.0-10.0); NEUT # 10.6 K/uL (1.8-7.0); RBC 3.79 Mil/uL (3.80-5.20); RED CELL DISTRIBUTION WIDTH 18.2 % (11.5-14.5); WHITE BLOOD COUNT 12.6 K/uL (4.8-10.8)
--- NOTE | 2017-05-08 07:19 | CP.PCM.PN ---
Subjective - Date & Time of Evaluation Date of Evaluation: 05/08/17 Time of Evaluation: 07:19 - Subjective Subjective: pt continues to feel weak, however improving pain controlled HD stable NAD Objective - Vital Signs/Intake and Output Vital Signs (last 24 hours): Temp Pulse Resp BP Pulse Ox 98.3 F 103 H 18 114/75 98 05/08/17 04:56 05/08/17 04:56 05/08/17 04:56 05/08/17 04:56 05/08/17 04:56 Vitals Reviewed GEN: WDWN, alert, cooperative HEENT: NCAT, PERRL, EOMI HEART: RRR, +S1S2, NO MRG LUNG: CTAB, NO WRR ABD: soft, APPROPRIATE TENDERNESS AT OP SITES, ND, No HSM, No masses EXT: normal pedal pulses, normal capillary refill NEURO: awake, alert, no focal deficits SKIN: warm, dry PSYCH: normal mood, normal affect Intake and Output: 05/08/17 05/08/17 06:59 18:59 Intake Total 1000 Output Total 20 Balance 980 - Medications Medications: Current Medications Acetaminophen (Tylenol 325mg Tab) 650 mg PO Q6 PRN PRN Reason: Pain, Mild (1-3) Acetaminophen (Tylenol 325mg Tab) 650 mg PO Q6 PRN PRN Reason: Fever >100.4 F Last Admin: 05/06/17 15:19 Dose: 650 mg Enoxaparin Sodium (Lovenox) 40 mg SC DAILY PATRICIA PRN Reason: Protocol Last Admin: 05/07/17 08:19 Dose: 40 mg Hydromorphone HCl (Dilaudid) 0.5 mg IVP Q4 PRN PRN Reason: Pain, severe (8-10) Doxycycline Hyclate 100 mg/ (Sodium Chloride) 100 mls @ 100 mls/hr IVPB Q12 PATRICIA PRN Reason: Protocol Last Admin: 05/07/17 22:06 Dose: 100 mls/hr Gentamicin Sulfate/Sodium Chloride (Gentamicin 100mg/100ml Ns) 100 mg in 100 mls @ 100 mls/hr IVPB Q12 PATRICIA PRN Reason: Protocol Last Admin: 05/08/17 01:34 Dose: 100 mls/hr Metronidazole (Flagyl 500mg/100ml Ns) 100 mls @ 100 mls/hr IVPB Q8@0500,1300, 2100 PATRICIA PRN Reason: Protocol Last Admin: 05/07/17 23:00 Dose: 100 mls/hr Vancomycin HCl 1 gm/ Sodium (Chloride) 250 mls @ 166.667 mls/hr IVPB Q12 PATRICIA PRN Reason: Protocol Last Admin: 05/07/17 20:02 Dose: 166.667 mls/hr - Labs Labs: 05/07/17 05:30 05/07/17 05:30 PT 14.2 Seconds (9.8-13.1) H 05/04/17 09:38 INR 1.3 (0.9-1.2) H 05/04/17 09:38 APTT 30.4 Seconds (25.6-37.1) 05/04/17 09:38 Assessment and Plan - Assessment and Plan (Free Text) Plan: 46 y/o lady , no significant PMH , has an IUD in place x more than 10 years, came in bec of fever and abdominal pain. CT of the Abdomen : - FINDINGS HIGHLY SUSPICIOUS FOR PERITONITIS, ASSOCIATED WITH COMPLEX PELVIC AND ABDOMINAL FREE FLUID. THIS IS MOST LIKELY SECONDARY TO A 10 x 3 CM LEFT- SIDED TUBO-OVARIAN ABSCESS. - IUD or retained portion of an IUD in the uterus. 05/05 : Pt underwent Explor Lap - Appendectomy , drainage of pelvic abscess (1) Sepsis with Peritonitis sec to Ruptured Appendicitis with phlegmon less likely Tubo-ovarian abscess , s/p Lap Appendectomy and drainage of Pelvic Abscess - Surgery and hospital nurse liaison on case - cont IV Doxycycline, Genta and Flagyl, Vancomycin also added by ID Clindamycin discontinued yesterday - ID: Dr Archer following pt - cont IVF hydration - Pain mgt - monitor MICHELLE drain output -pt tolerating Clear liquid diet (2) Retained intrauterine device (IUD) , s/p removal during surgery Status: Acute (3) DVT prophylaxis Status: Acute start Lovenox
[2017-05-08 07:35] LABS: ALB/GLOB RATIO 0.8 (1.0-2.1); ALBUMIN 2.7 g/dL (3.5-5.0); ALT/SGPT 40 U/L (9-52); AST/SGOT 42 U/L (14-36); BLOOD UREA NITROGEN 7 mg/dl (7-17); CALCIUM 7.9 mg/dL (8.4-10.2); GFR AFRICAN-AMERICAN > 60; GFR NON-AFRICAN AMERICAN > 60
[2017-05-08] MEDS: Enoxaparin 40 mg Syringe SC SCH (08:07)
[2017-05-08] MEDS: metroNIDAZOLE 500mg/100ml NS 100 ML IVPB SCH ×3 (12:49→22:12)
[2017-05-08] MEDS ORDERED: Gentamicin 60mg/50ml NS 60 MG/50 ML BAG IVPB SCH (16:30)
--- NOTE | 2017-05-08 16:30 | CP.PCM.PN ---
Subjective - Date & Time of Evaluation Date of Evaluation: 05/08/17 Time of Evaluation: 16:30 - Subjective Subjective: I D NOTE STILL HAS ELEVATEd WBC WHICH HAS DECREASED HAVE ADJUSTED DOSE OF GENTAMICIN Objective - Vital Signs/Intake and Output Vital Signs (last 24 hours): Temp Pulse Resp BP Pulse Ox 98.3 F 104 H 18 115/75 98 05/08/17 12:23 05/08/17 12:23 05/08/17 12:23 05/08/17 12:23 05/08/17 12:23 Intake and Output: 05/08/17 05/08/17 06:59 18:59 Intake Total 1000 Output Total 20 Balance 980 - Medications Medications: Current Medications Acetaminophen (Tylenol 325mg Tab) 650 mg PO Q6 PRN PRN Reason: Pain, Mild (1-3) Acetaminophen (Tylenol 325mg Tab) 650 mg PO Q6 PRN PRN Reason: Fever >100.4 F Last Admin: 05/06/17 15:19 Dose: 650 mg Enoxaparin Sodium (Lovenox) 40 mg SC DAILY PATRICIA PRN Reason: Protocol Last Admin: 05/08/17 08:07 Dose: 40 mg Hydromorphone HCl (Dilaudid) 0.5 mg IVP Q4 PRN PRN Reason: Pain, severe (8-10) Doxycycline Hyclate 100 mg/ (Sodium Chloride) 100 mls @ 100 mls/hr IVPB Q12 PATRICIA PRN Reason: Protocol Last Admin: 05/08/17 08:06 Dose: 100 mls/hr Metronidazole (Flagyl 500mg/100ml Ns) 100 mls @ 100 mls/hr IVPB Q8@0500,1300, 2100 PATRICIA PRN Reason: Protocol Last Admin: 05/08/17 12:49 Dose: 100 mls/hr Vancomycin HCl 1 gm/ Sodium (Chloride) 250 mls @ 166.667 mls/hr IVPB Q12 PATRICIA PRN Reason: Protocol Last Admin: 05/08/17 08:06 Dose: 166.667 mls/hr Gentamicin Sulfate 60 mg/ (Sterile Water) 6.5 mls @ 5 mls/hr IVPB Q12H PATRICIA PRN Reason: Protocol - Labs Labs: 05/08/17 06:30 05/08/17 06:30 PT 14.2 Seconds (9.8-13.1) H 05/04/17 09:38 INR 1.3 (0.9-1.2) H 05/04/17 09:38 APTT 30.4 Seconds (25.6-37.1) 05/04/17 09:38
--- NOTE | 2017-05-08 18:25 | CP.PCM.PN ---
<Mike Matias - Last Filed: 05/08/17 18:26> Subjective - Date & Time of Evaluation Date of Evaluation: 05/08/17 Time of Evaluation: 09:10 - Subjective Subjective: Pt seen and examined sitting in chair at bedside: Reports improvement in pain management. Objective - Vital Signs/Intake and Output Vital Signs (last 24 hours): Temp Pulse Resp BP Pulse Ox 99.1 F 96 H 18 117/78 98 05/08/17 16:27 05/08/17 16:27 05/08/17 16:27 05/08/17 16:27 05/08/17 16:27 Intake and Output: 05/08/17 05/08/17 06:59 18:59 Intake Total 1000 Output Total 20 Balance 980 - Medications Medications: Current Medications Acetaminophen (Tylenol 325mg Tab) 650 mg PO Q6 PRN PRN Reason: Pain, Mild (1-3) Acetaminophen (Tylenol 325mg Tab) 650 mg PO Q6 PRN PRN Reason: Fever >100.4 F Last Admin: 05/06/17 15:19 Dose: 650 mg Enoxaparin Sodium (Lovenox) 40 mg SC DAILY PATRICIA PRN Reason: Protocol Last Admin: 05/08/17 08:07 Dose: 40 mg Hydromorphone HCl (Dilaudid) 0.5 mg IVP Q4 PRN PRN Reason: Pain, severe (8-10) Doxycycline Hyclate 100 mg/ (Sodium Chloride) 100 mls @ 100 mls/hr IVPB Q12 PATRICIA PRN Reason: Protocol Last Admin: 05/08/17 08:06 Dose: 100 mls/hr Metronidazole (Flagyl 500mg/100ml Ns) 100 mls @ 100 mls/hr IVPB Q8@0500,1300, 2100 PATRICIA PRN Reason: Protocol Last Admin: 05/08/17 12:49 Dose: 100 mls/hr Vancomycin HCl 1 gm/ Sodium (Chloride) 250 mls @ 166.667 mls/hr IVPB Q12 PATRICIA PRN Reason: Protocol Last Admin: 05/08/17 08:06 Dose: 166.667 mls/hr Gentamicin Sulfate/Sodium Chloride (Gentamicin 60mg/50ml Ns) 60 mg in 50 mls @ 50 mls/hr IVPB Q12@0900,2100 PATRICIA PRN Reason: Protocol - Labs Labs: 05/08/17 06:30 05/08/17 06:30 PT 14.2 Seconds (9.8-13.1) H 05/04/17 09:38 INR 1.3 (0.9-1.2) H 05/04/17 09:38 APTT 30.4 Seconds (25.6-37.1) 05/04/17 09:38 Assessment and Plan - Assessment and Plan (Free Text) Plan: Assessment: 46 yo admitted on 05/04/17 for PID with pelvic abscess, s/p laparscopic drainage of pelvic abscess, laparoscopic appendectomy and IUD removal on 05/05/17, today is POD 3 Plan: 1.PID w/ pelvic abscess s/p laparoscopic drainage of pelvic abscess on 05/05/17 -S/P IUD removed on 05/05/17. -Mongolian-Keith drainage in place. 80 cc serosanguinous drainage in 24 hrs. -Continue monitor drainage output -F/U blood cx: no growth and wound cx: no growth -Continue with abx management as per Dr. Archer's recommendation and primary team 2. Laparoscopic appendectomy -Continue with abx -Monitor drainage output case dw Dr. Genny Matias MD PGY1 <Naif Royal O - Last Filed: 05/09/17 20:46> Objective - Vital Signs/Intake and Output Vital Signs (last 24 hours): Temp Pulse Resp BP Pulse Ox 98.4 F 100 H 16 122/81 100 05/09/17 20:05 05/09/17 20:05 05/09/17 20:05 05/09/17 20:05 05/09/17 20:05 Intake and Output: 05/09/17 05/10/17 18:59 06:59 Intake Total 1700 Output Total 20 Balance 1680 - Medications Medications: Current Medications Acetaminophen (Tylenol 325mg Tab) 650 mg PO Q6 PRN PRN Reason: Pain, Mild (1-3) Acetaminophen (Tylenol 325mg Tab) 650 mg PO Q6 PRN PRN Reason: Fever >100.4 F Last Admin: 05/06/17 15:19 Dose: 650 mg Metronidazole (Flagyl 500mg/100ml Ns) 100 mls @ 100 mls/hr IVPB Q8@0500,1300, 2100 PATRICIA PRN Reason: Protocol Last Admin: 05/09/17 17:58 Dose: 100 mls/hr Vancomycin HCl 1 gm/ Sodium (Chloride) 250 mls @ 166.667 mls/hr IVPB Q12 PATRICIA PRN Reason: Protocol Last Admin: 05/09/17 09:17 Dose: 166.667 mls/hr Gentamicin Sulfate/Sodium Chloride (Gentamicin 60mg/50ml Ns) 60 mg in 50 mls @ 50 mls/hr IVPB Q12@0900,2100 PATRICIA PRN Reason: Protocol Last Admin: 05/09/17 09:16 Dose: 50 mls/hr Doxycycline Hyclate 100 mg/ (Sodium Chloride) 100 mls @ 100 mls/hr IVPB Q12 PATRICIA PRN Reason: Protocol Last Admin: 05/09/17 09:45 Dose: 100 mls/hr - Labs Labs: 05/09/17 05:58 05/09/17 05:58 PT 14.2 Seconds (9.8-13.1) H 05/04/17 09:38 INR 1.3 (0.9-1.2) H 05/04/17 09:38 APTT 30.4 Seconds (25.6-37.1) 05/04/17 09:38 Attending/Attestation - Attestation I have personally seen and examined this patient.: Yes I have fully participated in the care of the patient.: Yes I have reviewed all pertinent clinical information, including history, physical exam and plan: Yes
[2017-05-08] MEDS: Gentamicin 60mg/50ml NS 60 MG/50 ML BAG IVPB SCH (22:11)
[2017-05-09] MEDS: metroNIDAZOLE 500mg/100ml NS 100 ML IVPB SCH ×3 (04:44→20:58)
[2017-05-09 08:19] LABS: BLOOD UREA NITROGEN 9 mg/dl (7-17); CALCIUM 7.7 mg/dL (8.4-10.2); GFR AFRICAN-AMERICAN > 60; GFR NON-AFRICAN AMERICAN > 60
--- NOTE | 2017-05-09 08:26 | CP.PCM.PN ---
<Evie Mcnair - Last Filed: 05/09/17 08:29> Subjective - Date & Time of Evaluation Date of Evaluation: 05/09/17 Time of Evaluation: 08:24 - Subjective Subjective: OBGYN progress: S: No acute overnight events. Pt remains afebrile. Endorsing abdominal pain only with ambulation and palpation. Denies chest pain, dyspnea, n/v/d/c, fever and chills. Objective - Vital Signs/Intake and Output Vital Signs (last 24 hours): Temp Pulse Resp BP Pulse Ox 98.1 F 107 H 18 124/82 99 05/09/17 05:21 05/09/17 05:21 05/09/17 05:21 05/09/17 05:21 05/09/17 05:21 - Medications Medications: Current Medications Acetaminophen (Tylenol 325mg Tab) 650 mg PO Q6 PRN PRN Reason: Pain, Mild (1-3) Acetaminophen (Tylenol 325mg Tab) 650 mg PO Q6 PRN PRN Reason: Fever >100.4 F Last Admin: 05/06/17 15:19 Dose: 650 mg Enoxaparin Sodium (Lovenox) 40 mg SC DAILY PATRICIA PRN Reason: Protocol Last Admin: 05/08/17 08:07 Dose: 40 mg Hydromorphone HCl (Dilaudid) 0.5 mg IVP Q4 PRN PRN Reason: Pain, severe (8-10) Metronidazole (Flagyl 500mg/100ml Ns) 100 mls @ 100 mls/hr IVPB Q8@0500,1300, 2100 PATRICIA PRN Reason: Protocol Last Admin: 05/09/17 04:44 Dose: 100 mls/hr Vancomycin HCl 1 gm/ Sodium (Chloride) 250 mls @ 166.667 mls/hr IVPB Q12 PATRICIA PRN Reason: Protocol Last Admin: 05/08/17 22:17 Dose: 166.667 mls/hr Gentamicin Sulfate/Sodium Chloride (Gentamicin 60mg/50ml Ns) 60 mg in 50 mls @ 50 mls/hr IVPB Q12@0900,2100 PATRICIA PRN Reason: Protocol Last Admin: 05/08/17 22:11 Dose: 50 mls/hr - Labs Labs: 05/08/17 06:30 05/09/17 05:58 PT 14.2 Seconds (9.8-13.1) H 05/04/17 09:38 INR 1.3 (0.9-1.2) H 05/04/17 09:38 APTT 30.4 Seconds (25.6-37.1) 05/04/17 09:38 - Constitutional Appears: Well, No Acute Distress - Head Exam Head Exam: ATRAUMATIC, NORMOCEPHALIC - Eye Exam Eye Exam: EOMI, Normal appearance - ENT Exam ENT Exam: Mucous Membranes Moist - Neck Exam Neck Exam: Full ROM - Respiratory Exam Respiratory Exam: Clear to Ausculation Bilateral, NORMAL BREATHING PATTERN - Cardiovascular Exam Cardiovascular Exam: Tachycardia, REGULAR RHYTHM, +S1, +S2 - GI/Abdominal Exam GI & Abdominal Exam: Soft, Tenderness (tenderness to plaption of LLQ and RLQ around incision site. Incisions are clean, dry and intact. Dermabond in place. ), Normal Bowel Sounds. absent: Distended, Guarding Additional comments: MICHELLE in place, draining sero-sanguineous fluid. - Back Exam Back Exam: absent: CVA tenderness (L), CVA tenderness (R) - Neurological Exam Neurological Exam: Alert, Awake, Oriented x3 - Psychiatric Exam Psychiatric exam: Normal Affect, Normal Mood - Skin Skin Exam: Dry, Intact, Normal Color, Warm Assessment and Plan - Assessment and Plan (Free Text) Assessment: Assessment: 46 yo admitted on 05/04/17 for PID with pelvic abscess. S/p lap drainage of pelvic abscess, lap appendectomy and IUD removal on 05/05/17 , today is POD 4. WBC is downtrending, and pt remains afebrile. Plan: 1. PID w/ pelvic abscess -s/p laparoscopic drainage of pelvic abscess on 05/05/17 -S/P IUD removed on 05/05/17. -Georgian-Keith drainage in place. 40 cc serosanguinous drainage in 24 hrs. -Continue monitor drainage output -BCx no growth D3 and wound cx no growth final -Continue with abx management as per Dr. Archer's recommendation and primary team 2. Laparoscopic appendectomy -Continue with abx -Monitor drainage output <Naif Royal O - Last Filed: 05/09/17 20:50> Objective - Vital Signs/Intake and Output Vital Signs (last 24 hours): Temp Pulse Resp BP Pulse Ox 98.4 F 100 H 16 122/81 100 05/09/17 20:05 05/09/17 20:05 05/09/17 20:05 05/09/17 20:05 05/09/17 20:05 Intake and Output: 05/09/17 05/10/17 18:59 06:59 Intake Total 1700 Output Total 20 Balance 1680 - Medications Medications: Current Medications Acetaminophen (Tylenol 325mg Tab) 650 mg PO Q6 PRN PRN Reason: Pain, Mild (1-3) Acetaminophen (Tylenol 325mg Tab) 650 mg PO Q6 PRN PRN Reason: Fever >100.4 F Last Admin: 05/06/17 15:19 Dose: 650 mg Metronidazole (Flagyl 500mg/100ml Ns) 100 mls @ 100 mls/hr IVPB Q8@0500,1300, 2100 PATRICIA PRN Reason: Protocol Last Admin: 05/09/17 17:58 Dose: 100 mls/hr Vancomycin HCl 1 gm/ Sodium (Chloride) 250 mls @ 166.667 mls/hr IVPB Q12 PATRICIA PRN Reason: Protocol Last Admin: 05/09/17 09:17 Dose: 166.667 mls/hr Gentamicin Sulfate/Sodium Chloride (Gentamicin 60mg/50ml Ns) 60 mg in 50 mls @ 50 mls/hr IVPB Q12@0900,2100 PATRICIA PRN Reason: Protocol Last Admin: 05/09/17 09:16 Dose: 50 mls/hr Doxycycline Hyclate 100 mg/ (Sodium Chloride) 100 mls @ 100 mls/hr IVPB Q12 PATRICIA PRN Reason: Protocol Last Admin: 05/09/17 09:45 Dose: 100 mls/hr - Labs Labs: 05/09/17 05:58 05/09/17 05:58 PT 14.2 Seconds (9.8-13.1) H 05/04/17 09:38 INR 1.3 (0.9-1.2) H 05/04/17 09:38 APTT 30.4 Seconds (25.6-37.1) 05/04/17 09:38 Attending/Attestation - Attestation I have personally seen and examined this patient.: Yes I have fully participated in the care of the patient.: Yes I have reviewed all pertinent clinical information, including history, physical exam and plan: Yes
[2017-05-09 08:33] LABS: BASO % 0.3 % (0.0-2.0); EOS # 0.2 K/uL (0.0-0.7); EOS % 1.6 % (0.0-4.0); HEMOGLOBIN 8.9 g/dL (12.0-16.0); LYMPH # 0.8 K/uL (1.0-4.3); LYMPH % 7.4 % (20.0-40.0); MEAN CELL VOLUME 74.1 fl (81.0-99.0); MEAN CORPUSCULAR HEMOGLOBIN 24.8 pg (27.0-31.0); MEAN CORPUSCULAR HGB CONC 33.5 g/dL (33.0-37.0); MEAN PLATELET VOLUME 8.6 fl (7.2-11.7); MONO # 1.1 K/uL (0.0-0.8); MONO % 10.4 % (0.0-10.0); NEUT # 8.5 K/uL (1.8-7.0); NEUT % 80.3 % (50.0-75.0); PLATELET COUNT 270 K/uL (130-400); RBC 3.58 Mil/uL (3.80-5.20); RED CELL DISTRIBUTION WIDTH 18.6 % (11.5-14.5); WHITE BLOOD COUNT 10.6 K/uL (4.8-10.8)
[2017-05-09] MEDS: Gentamicin 60mg/50ml NS 60 MG/50 ML BAG IVPB SCH ×2 (09:16→20:57)
--- NOTE | 2017-05-09 09:34 | CP.PCM.PN ---
Subjective - Date & Time of Evaluation Date of Evaluation: 05/09/17 Time of Evaluation: 09:34 - Subjective Subjective: feeling improved afebrile wbc normalized hd stable nad Objective - Vital Signs/Intake and Output Vital Signs (last 24 hours): Temp Pulse Resp BP Pulse Ox 98 F 81 16 106/70 98 05/09/17 08:32 05/09/17 08:32 05/09/17 08:32 05/09/17 08:32 05/09/17 08:32 Vitals Reviewed GEN: WDWN, alert, cooperative HEENT: NCAT, PERRL, EOMI HEART: RRR, +S1S2, NO MRG LUNG: CTAB, NO WRR ABD: soft, NT, ND, No HSM, No masses EXT: normal pedal pulses, normal capillary refill NEURO: awake, alert, no focal deficits SKIN: warm, dry PSYCH: normal mood, normal affect - Medications Medications: Current Medications Acetaminophen (Tylenol 325mg Tab) 650 mg PO Q6 PRN PRN Reason: Pain, Mild (1-3) Acetaminophen (Tylenol 325mg Tab) 650 mg PO Q6 PRN PRN Reason: Fever >100.4 F Last Admin: 05/06/17 15:19 Dose: 650 mg Hydromorphone HCl (Dilaudid) 0.5 mg IVP Q4 PRN PRN Reason: Pain, severe (8-10) Metronidazole (Flagyl 500mg/100ml Ns) 100 mls @ 100 mls/hr IVPB Q8@0500,1300, 2100 PATRICIA PRN Reason: Protocol Last Admin: 05/09/17 04:44 Dose: 100 mls/hr Vancomycin HCl 1 gm/ Sodium (Chloride) 250 mls @ 166.667 mls/hr IVPB Q12 PATRICIA PRN Reason: Protocol Last Admin: 05/09/17 09:17 Dose: 166.667 mls/hr Gentamicin Sulfate/Sodium Chloride (Gentamicin 60mg/50ml Ns) 60 mg in 50 mls @ 50 mls/hr IVPB Q12@0900,2100 PATRICIA PRN Reason: Protocol Last Admin: 05/09/17 09:16 Dose: 50 mls/hr Doxycycline Hyclate 100 mg/ (Sodium Chloride) 100 mls @ 100 mls/hr IVPB Q12 PATRICIA PRN Reason: Protocol - Labs Labs: 05/09/17 05:58 05/09/17 05:58 PT 14.2 Seconds (9.8-13.1) H 05/04/17 09:38 INR 1.3 (0.9-1.2) H 05/04/17 09:38 APTT 30.4 Seconds (25.6-37.1) 05/04/17 09:38 Assessment and Plan - Assessment and Plan (Free Text) Plan: 46 y/o lady , no significant PMH , has an IUD in place x more than 10 years, came in bec of fever and abdominal pain. CT of the Abdomen : - FINDINGS HIGHLY SUSPICIOUS FOR PERITONITIS, ASSOCIATED WITH COMPLEX PELVIC AND ABDOMINAL FREE FLUID. THIS IS MOST LIKELY SECONDARY TO A 10 x 3 CM LEFT- SIDED TUBO-OVARIAN ABSCESS. - IUD or retained portion of an IUD in the uterus. 05/05 : Pt underwent Explor Lap - Appendectomy , drainage of pelvic abscess (1) Sepsis with Peritonitis sec to Ruptured Appendicitis with phlegmon less likely Tubo-ovarian abscess , s/p Lap Appendectomy and drainage of Pelvic Abscess - Surgery and ice cream dispenser on case - cont IV Doxycycline, Genta and Flagyl, Vancomycin also added by ID Clindamycin discontinued yesterday - ID: Dr Archer following pt - cont IVF hydration - Pain mgt - monitor MICHELLE drain output -pt tolerating Clear liquid diet (2) Retained intrauterine device (IUD) , s/p removal during surgery Status: Acute (3) DVT prophylaxis Status: Acute start Lovenox
[2017-05-09 11:52] LABS: ANISOCYTOSIS SLIGHT; BANDS 1 % (0-2); EOSINOPHIL 3 % (0-7); LYMPHOCYTE 5 % (20-50); MONOCYTE 16 % (0-10); NEUTROPHIL 73 % (42-75); PLATELET ESTIMATE NORMAL (NORMAL); POIKILOCYTOSIS SLIGHT; REACTIVE LYMPHOCYTES 2 % (0-0); TOTAL CELLS COUNTED 100
[2017-05-09 11:53] LABS: HYPOCHROMIC MODERATE; OVALOCYTES SLIGHT; TARGET CELLS SLIGHT
[2017-05-09 11:54] LABS: MICROCYTOSIS SLIGHT; TEARDROP CELLS SLIGHT
[2017-05-09] MEDS: Enoxaparin 40 mg Syringe SC SCH (17:57)
--- NOTE | 2017-05-09 18:22 | CP.PCM.PN ---
Subjective - Date & Time of Evaluation Date of Evaluation: 05/09/17 Time of Evaluation: 18:20 - Subjective Subjective: I D NOTE REVIEWED LABS ,DRAINAGE NO CACERES EOR PRESENT WOULD CONSIDER CT SCAN WHEN SURGICAL TEAM FEELS APPROPRIATE Objective - Vital Signs/Intake and Output Vital Signs (last 24 hours): Temp Pulse Resp BP Pulse Ox 99.3 F 102 H 16 122/79 100 05/09/17 17:10 05/09/17 17:10 05/09/17 17:10 05/09/17 17:10 05/09/17 17:10 - Medications Medications: Current Medications Acetaminophen (Tylenol 325mg Tab) 650 mg PO Q6 PRN PRN Reason: Pain, Mild (1-3) Acetaminophen (Tylenol 325mg Tab) 650 mg PO Q6 PRN PRN Reason: Fever >100.4 F Last Admin: 05/06/17 15:19 Dose: 650 mg Metronidazole (Flagyl 500mg/100ml Ns) 100 mls @ 100 mls/hr IVPB Q8@0500,1300, 2100 PATRICIA PRN Reason: Protocol Last Admin: 05/09/17 17:58 Dose: 100 mls/hr Vancomycin HCl 1 gm/ Sodium (Chloride) 250 mls @ 166.667 mls/hr IVPB Q12 PATRICIA PRN Reason: Protocol Last Admin: 05/09/17 09:17 Dose: 166.667 mls/hr Gentamicin Sulfate/Sodium Chloride (Gentamicin 60mg/50ml Ns) 60 mg in 50 mls @ 50 mls/hr IVPB Q12@0900,2100 PATRICIA PRN Reason: Protocol Last Admin: 05/09/17 09:16 Dose: 50 mls/hr Doxycycline Hyclate 100 mg/ (Sodium Chloride) 100 mls @ 100 mls/hr IVPB Q12 PATRICIA PRN Reason: Protocol Last Admin: 05/09/17 09:45 Dose: 100 mls/hr - Labs Labs: 05/09/17 05:58 05/09/17 05:58 PT 14.2 Seconds (9.8-13.1) H 05/04/17 09:38 INR 1.3 (0.9-1.2) H 05/04/17 09:38 APTT 30.4 Seconds (25.6-37.1) 05/04/17 09:38
[2017-05-10] MEDS: metroNIDAZOLE 500mg/100ml NS 100 ML IVPB SCH ×2 (05:39→14:00)
[2017-05-10 05:57] LABS: HEMOGLOBIN 9.5 g/dL (12.0-16.0); MEAN CELL VOLUME 73.8 fl (81.0-99.0); MEAN CORPUSCULAR HEMOGLOBIN 24.3 pg (27.0-31.0); RBC 3.9 Mil/uL (3.80-5.20); RED CELL DISTRIBUTION WIDTH 18.2 % (11.5-14.5); WHITE BLOOD COUNT 11.1 K/uL (4.8-10.8)
[2017-05-10 06:02] LABS: BLOOD UREA NITROGEN 8 mg/dl (7-17); CALCIUM 7.9 mg/dL (8.4-10.2); GFR AFRICAN-AMERICAN > 60; GFR NON-AFRICAN AMERICAN > 60
--- NOTE | 2017-05-10 09:18 | CP.PCM.PN ---
Subjective - Date & Time of Evaluation Date of Evaluation: 05/10/17 Time of Evaluation: 09:05 - Subjective Subjective: [employer] Machine [employer]er progress note for Dr. Stein Pt seen and examined at bedside this morning. No acute overnight events. She denies any abdominal pain. Pt is tolerating PO. Has regular BM and voiding w/o difficulty. Pt remains afebrile. Denies chest pain, dyspnea, n/v/d/c, fever or chills. Objective - Vital Signs/Intake and Output Vital Signs (last 24 hours): Temp Pulse Resp BP Pulse Ox 98.4 F 97 H 18 108/69 97 05/10/17 08:03 05/10/17 08:03 05/10/17 08:03 05/10/17 08:03 05/10/17 08:03 Intake and Output: 05/10/17 05/10/17 06:59 18:59 Intake Total 800 Output Total 20 Balance 780 - Medications Medications: Current Medications Acetaminophen (Tylenol 325mg Tab) 650 mg PO Q6 PRN PRN Reason: Pain, Mild (1-3) Acetaminophen (Tylenol 325mg Tab) 650 mg PO Q6 PRN PRN Reason: Fever >100.4 F Last Admin: 05/06/17 15:19 Dose: 650 mg Metronidazole (Flagyl 500mg/100ml Ns) 100 mls @ 100 mls/hr IVPB Q8@0500,1300, 2100 PATRICIA PRN Reason: Protocol Last Admin: 05/10/17 05:39 Dose: 100 mls/hr Vancomycin HCl 1 gm/ Sodium (Chloride) 250 mls @ 166.667 mls/hr IVPB Q12 PATRICIA PRN Reason: Protocol Last Admin: 05/09/17 20:56 Dose: 166.667 mls/hr Gentamicin Sulfate/Sodium Chloride (Gentamicin 60mg/50ml Ns) 60 mg in 50 mls @ 50 mls/hr IVPB Q12@0900,2100 PATRICIA PRN Reason: Protocol Last Admin: 05/09/17 20:57 Dose: 50 mls/hr Doxycycline Hyclate 100 mg/ (Sodium Chloride) 100 mls @ 100 mls/hr IVPB Q12 PATRICIA PRN Reason: Protocol Last Admin: 05/09/17 21:28 Dose: 100 mls/hr - Labs Labs: 05/10/17 04:20 05/10/17 04:20 PT 14.2 Seconds (9.8-13.1) H 05/04/17 09:38 INR 1.3 (0.9-1.2) H 05/04/17 09:38 APTT 30.4 Seconds (25.6-37.1) 05/04/17 09:38 - Constitutional Appears: Non-toxic, No Acute Distress - ENT Exam ENT Exam: Mucous Membranes Moist - Respiratory Exam Respiratory Exam: Clear to Ausculation Bilateral, NORMAL BREATHING PATTERN. absent: Rales, Rhonchi - Cardiovascular Exam Cardiovascular Exam: REGULAR RHYTHM, RRR, +S1, +S2 - GI/Abdominal Exam GI & Abdominal Exam: Soft, Normal Bowel Sounds. absent: Tenderness, Rebound Additional comments: MICHELLE in place, draining sero-sanguineous fluid. Incision looks clean, dry and intact. - Extremities Exam Extremities Exam: absent: Calf Tenderness, Pedal Edema - Neurological Exam Neurological Exam: Alert, Awake, Oriented x3 Assessment and Plan - Assessment and Plan (Free Text) Assessment: Assessment: 46 yo admitted on 05/04/17 for PID with pelvic abscess. S/p lap drainage of pelvic abscess, lap appendectomy and IUD removal on 05/05/17 , today is POD 5. Pt remains afebrile. Plan: 1. PID w/ pelvic abscess -s/p laparoscopic drainage of pelvic abscess on 05/05/17 -S/P IUD removed on 05/05/17. -Welsh-Keith drainage in place. 30 cc serosanguinous drainage in 24 hrs. -Continue monitor drainage output -BCx no growth after 4 days and wound cx no growth final -Continue with abx management as per Dr. Archer's recommendation and primary team 2. Laparoscopic appendectomy -Continue with abx -Monitor drainage output Case d/w on-call OB Hospitalist Dr. Emil Martinez, [id number]
[2017-05-10] MEDS: Gentamicin 60mg/50ml NS 60 MG/50 ML BAG IVPB SCH (09:19)
[2017-05-10] MEDS ORDERED: Potassium Chloride 20 mEq/15 ml LIQ UD PO ONE (12:00)
[2017-05-10 12:37] VITALS: O2SAT 98
[2017-05-10 15:58] VITALS: BP 111/73; PULSE 101; RESP 17; TEMP 99
--- NOTE | 2017-05-10 21:01 | CP.PCM.DIS ---
Provider - Provider Date of Admission: 05/04/17 03:41 Attending physician: Aram Wheatley MD Primary care physician: None Consults: Ob & land degradation analyst consult ID consult general surgery consult Time Spent in preparation of Discharge (in minutes): 15 Hospital Course - Lab Results Lab Results: Micro Results 05/05/17 12:26 Blood Blood Culture - Final NO GROWTH AFTER 5 DAYS 05/05/17 12:26 Blood Gram Stain - Final TEST NOT PERFORMED 05/05/17 12:26 Blood Blood Culture - Final NO GROWTH AFTER 5 DAYS 05/05/17 12:26 Blood Gram Stain - Final TEST NOT PERFORMED 05/05/17 08:59 Other: Please Indicate Gram Stain - Final 05/05/17 08:59 Other: Please Indicate Wound Culture - Final No growth. 05/06/17 08:59 Peritoneal Fluid Gram Stain - Final 05/06/17 08:59 Peritoneal Fluid Body Fluid Culture - Final No growth. 05/04/17 08:00 Urine,Clean Catch Urine Culture - Final No Growth (<1,000 CFU/ML) Most Recent Lab Values WBC 11.1 K/uL (4.8-10.8) H 05/10/17 04:20 RBC 3.90 Mil/uL (3.80-5.20) 05/10/17 04:20 Hgb 9.5 g/dL (12.0-16.0) L 05/10/17 04:20 Hct 28.8 % (34.0-47.0) L 05/10/17 04:20 MCV 73.8 fl (81.0-99.0) L 05/10/17 04:20 MCH 24.3 pg (27.0-31.0) L 05/10/17 04:20 MCHC 33.0 g/dL (33.0-37.0) 05/10/17 04:20 RDW 18.2 % (11.5-14.5) H 05/10/17 04:20 Plt Count 333 K/uL (130-400) 05/10/17 04:20 MPV 8.6 fl (7.2-11.7) 05/09/17 05:58 Neut % (Auto) 80.3 % (50.0-75.0) H 05/09/17 05:58 Lymph % (Auto) 7.4 % (20.0-40.0) L 05/09/17 05:58 [place] % (Auto) 10.4 % (0.0-10.0) H 05/09/17 05:58 Eos % (Auto) 1.6 % (0.0-4.0) 05/09/17 05:58 Baso % (Auto) 0.3 % (0.0-2.0) 05/09/17 05:58 Neut # (Auto) 8.5 K/uL (1.8-7.0) H 05/09/17 05:58 Lymph # (Auto) 0.8 K/uL (1.0-4.3) L 05/09/17 05:58 [place] # (Auto) 1.1 K/uL (0.0-0.8) H 05/09/17 05:58 Eos # (Auto) 0.2 K/uL (0.0-0.7) 05/09/17 05:58 Baso # (Auto) 0.0 K/uL (0.0-0.2) 05/09/17 05:58 Total Counted Cancelled 05/05/17 04:25 Neutrophils % (Manual) 73 % (42-75) 05/09/17 05:58 Band Neutrophils % 1 % (0-2) 05/09/17 05:58 Lymphocytes % (Manual) 5 % (20-50) L 05/09/17 05:58 Reactive Lymphs % 2 % (0-0) H 05/09/17 05:58 Monocytes % (Manual) 16 % (0-10) H 05/09/17 05:58 Eosinophils % (Manual) 3 % (0-7) 05/09/17 05:58 Basophils % (Manual) Cancelled 05/05/17 04:25 Metamyelocytes % Cancelled 05/05/17 04:25 Myelocytes % Cancelled 05/05/17 04:25 Promyelocytes % Cancelled 05/05/17 04:25 Blast Cells % Cancelled 05/05/17 04:25 Plasma Cell % (Manual) Cancelled 05/05/17 04:25 Nucleated RBC % Cancelled 05/05/17 04:25 Hypersegmented Polys Cancelled 05/05/17 04:25 Smudge Cells Cancelled 05/05/17 04:25 Toxic Granulation Present 05/06/17 04:45 Dohle Bodies Cancelled 05/05/17 04:25 Mohini Rods Cancelled 05/05/17 04:25 Platelet Estimate Normal (NORMAL) 05/09/17 05:58 Plt Clumps, EDTA Present 05/06/17 04:45 Large Platelets Present 05/04/17 00:10 Giant Platelets Cancelled 05/05/17 04:25 RBC Morphology Cancelled 05/05/17 04:25 Polychromasia Cancelled 05/05/17 04:25 Hypochromasia (manual) Moderate 05/09/17 05:58 Poikilocytosis (manual Slight 05/09/17 05:58 Basophilic Stippling Cancelled 05/05/17 04:25 Anisocytosis (manual) Slight 05/09/17 05:58 Microcytosis (manual) Slight 05/09/17 05:58 Macrocytosis (manual) Cancelled 05/05/17 04:25 Spherocytes Cancelled 05/05/17 04:25 Sickle Cells Cancelled 05/05/17 04:25 Target Cells Slight 05/09/17 05:58 Tear Drop Cells Slight 05/09/17 05:58 Ovalocytes Slight 05/09/17 05:58 Stomatocytes Cancelled 05/05/17 04:25 Helmet Cells Cancelled 05/05/17 04:25 [place] Bodies Cancelled 05/05/17 04:25 [place] Cells Slight 05/06/17 04:45 Acanthocytes (Spur) Cancelled 05/05/17 04:25 Rouleaux Cancelled 05/05/17 04:25 Schistocytes Slight 05/06/17 04:45 PT 14.2 Seconds (9.8-13.1) H 05/04/17 09:38 INR 1.3 (0.9-1.2) H 05/04/17 09:38 APTT 30.4 Seconds (25.6-37.1) 05/04/17 09:38 pO2 24 mm/Hg (30-55) L 05/04/17 03:50 VBG pH 7.38 (7.32-7.43) 05/04/17 03:50 VBG pCO2 36 mmHg (40-60) L 05/04/17 03:50 VBG HCO3 20.8 mmol/L 05/04/17 03:50 VBG Total CO2 22.4 mmol/L (22-28) 05/04/17 03:50 VBG O2 Sat (Calc) 48.1 % (40-65) 05/04/17 03:50 VBG Base Excess -3.3 mmol/L (0.0-2.0) L 05/04/17 03:50 VBG Potassium 3.7 mmol/L (3.6-5.2) 05/04/17 03:50 Sodium 136.0 mmol/L (132-148) 05/04/17 03:50 Chloride 108.0 mmol/L (98-107) H 05/04/17 03:50 Glucose 101 mg/dL (65-105) 05/04/17 03:50 Lactate 1.0 mmol/L (0.7-2.1) 05/04/17 03:50 FiO2 21.0 % 05/04/17 03:50 Sodium 140 mmol/l (132-148) 05/10/17 04:20 Potassium 3.4 MMOL/L (3.6-5.0) L 05/10/17 04:20 Chloride 104 mmol/L (98-107) 05/10/17 04:20 Carbon Dioxide 23 mmol/L (22-30) 05/10/17 04:20 Anion Gap 16 (10-20) 05/10/17 04:20 BUN 8 mg/dl (7-17) 05/10/17 04:20 Creatinine 0.6 mg/dl (0.7-1.2) L 05/10/17 04:20 Est GFR ( Amer) > 60 05/10/17 04:20 Est GFR (Non-Af Amer) > 60 05/10/17 04:20 Random Glucose 97 mg/dL (65-105) 05/10/17 04:20 Lactic Acid 0.9 MMOL/L (0.7-2.1) 05/05/17 04:25 Calcium 7.9 mg/dL (8.4-10.2) L 05/10/17 04:20 Phosphorus 2.1 mg/dl (2.5-4.5) L 05/09/17 05:58 Magnesium 2.3 MG/DL (1.6-2.3) 05/09/17 05:58 Total Bilirubin 0.5 mg/dl (0.2-1.3) 05/08/17 06:30 AST 42 U/L (14-36) H D 05/08/17 06:30 ALT 40 U/L (9-52) 05/08/17 06:30 Alkaline Phosphatase 122 U/L (38-126) 05/08/17 06:30 Total Protein 6.3 G/DL (6.3-8.2) 05/08/17 06:30 Albumin 2.7 g/dL (3.5-5.0) L D 05/08/17 06:30 Globulin 3.6 gm/dL (2.2-3.9) 05/08/17 06:30 Albumin/Globulin Ratio 0.8 (1.0-2.1) L 05/08/17 06:30 Lipase 18 U/L (23-300) L 05/04/17 00:10 Procalcitonin 6.21 NG/ML (0.19-0.49) H 05/04/17 17:46 Venous Blood Potassium 3.7 mmol/L (3.6-5.2) 05/04/17 03:50 Urine Color Yellow (YELLOW) 05/04/17 00:10 Urine Clarity Cloudy (Clear) 05/04/17 00:10 Urine pH 5.0 (5.0-8.0) 05/04/17 00:10 Ur Specific [place] 1.026 (1.003-1.030) 05/04/17 00:10 Urine Protein 100 mg/dL (NEGATIVE) 05/04/17 00:10 Urine Glucose (UA) Neg mg/dL (Normal) 05/04/17 00:10 Urine Ketones 20 mg/dL (NEGATIVE) 05/04/17 00:10 Urine Blood Large (NEGATIVE) 05/04/17 00:10 Urine Nitrate Negative (NEGATIVE) 05/04/17 00:10 Urine Bilirubin Negative (NEGATIVE) 05/04/17 00:10 Urine Urobilinogen 0.2-1.0 mg/dL (0.2-1.0) 05/04/17 00:10 Ur Leukocyte Esterase Large Bess/uL (Negative) 05/04/17 00:10 Urine RBC (Auto) 34 /hpf (0-3) H 05/04/17 00:10 Urine Microscopic WBC 151 /hpf (0-5) H 05/04/17 00:10 Ur Squamous Epith Cells 5 /hpf (0-5) 05/04/17 00:10 Urine Bacteria Rare (<OCC) 05/04/17 00:10 Vancomycin Trough 8.7 ug/mL (5.0-10.0) 05/08/17 21:00 C.trachomatis RNA (TMA) Not detected (Not Detected) 05/04/17 08:00 N.gonorrhoeae RNA (TMA) Not detected (Not Detected) 05/04/17 08:00 Blood Type A POSITIVE 05/05/17 12:26 Blood Type Confirm A POSITIVE 05/05/17 13:31 Antibody Screen Negative 05/05/17 12:26 BBK History Checked No verified bt 05/05/17 12:26 - Hospital Course Hospital Course: 46 y/o lady ,with no significant PMH with an IUD in place for more than 10 years, came in bec of fever and abdominal pain. CT of the Abdomen : - FINDINGS HIGHLY SUSPICIOUS FOR PERITONITIS, ASSOCIATED WITH COMPLEX PELVIC AND ABDOMINAL FREE FLUID. THIS IS MOST LIKELY SECONDARY TO A 10 x 3 CM LEFT- SIDED TUBO-OVARIAN ABSCESS. - IUD or retained portion of an IUD in the uterus. She was admitted with suspicious diagnosis of ruptured appendicitis vs tubo ovarian abscess. General surgery , Ob & Cover Stripper and ID were consulted. She was started on IV antibiotiocs, Doxycycline,Flagyl, Clindamycin , gentamycin and vanco IV since she is allergic to penicillin. She was taken to OR by general surgery with intraop OB consult .She underwent laparascopic appendectomy for perforated appendicitis, pelvic abscess drainage with Franch Keith drain placement. No Tubo ovarian abscess seen . IUD was removed 05/05 Post op patient slowly improving. Received 6 days of IV antibiotics, Flagyl, Genta, Vanco and Doxycycline . At present hemodynamically stable, afebrile, WBC - wnl, with minimal serous output from drain, tolerating PO intake, had regular bowel movement and ambulating with stable gait She is cleared both by surgery and Cover Stripper for discharge Discussed with ID . Will discharge patient maia sherly Flagyl and Doxycycline P{O for 10 more days Will need to follow up with Dr. White in 1 week for drain removal Follow up with land degradation analyst clinic All questions answered . patient agrees with discharge plan 1.Sepsis with Peritonitis sec to Ruptured Appendicitis with phlegmon , pelvic abscess and PID less likely Tubo-ovarian abscess , s/p Lap Appendectomy and drainage of Pelvic Abscess Surgery land degradation analyst and ID were consulted Drain in place. will d/c home with drain . follow upw ith surgeon in 1 week Received 6 days IV antibiotics vanco , Flagyl, Genta and Doxycycline Will d/c home on PO flagyl and doxycycline for 10 day s 2. Retained intrauterine device (IUD) , s/p removal 05/05 Status: Acute 3. Anemia Hgb 9, stable will need follow up with [facility] clinic as out patient Discharge Exam - Head Exam Head Exam: ATRAUMATIC, NORMAL INSPECTION, NORMOCEPHALIC - Eye Exam Eye Exam: EOMI, Normal appearance, PERRL Pupil Exam: NORMAL ACCOMODATION - ENT Exam ENT Exam: Mucous Membranes Moist, Normal Exam - Neck Exam Neck exam: Full Rom, Normal Inspection - Respiratory Exam Respiratory Exam: Clear to PA & Lateral, NORMAL BREATHING PATTERN. absent: Rales, Rhonchi, Wheezes - Cardiovascular Exam Cardiovascular Exam: REGULAR RHYTHM, RRR, +S1, +S2. absent: JVD - GI/Abdominal Exam GI & Abdominal Exam: Normal Bowel Sounds, Soft. absent: Guarding, Rebound, Tenderness Additional comments: MICHELLE drain ro RLQ - Rectal Exam Rectal Exam: Deferred - Extremities Exam Extremities exam: normal capillary refill, normal inspection, pedal pulses present - Back Exam Back exam: NORMAL INSPECTION - Neurological Exam Neurological exam: Alert, CN II-XII Intact, Oriented x3, Reflexes Normal - Psychiatric Exam Psychiatric exam: Normal Affect, Normal Mood - Skin Skin Exam: Dry, Pallor, Warm Discharge Plan - Discharge Medications Prescriptions: Doxycycline Hyclate 100 mg PO BID #20 capsule Metronidazole [Flagyl] 500 mg PO Q8 #30 tab - Follow Up Plan Condition: STABLE Disposition: HOME/ ROUTINE Patient education suggested?: Yes Instructions: Appendectomy, Laparoscopic Surgery (DC), Appendectomy, Laparoscopic Surgery, Appendicitis in Adults Additional Instructions: follow up with pmd in 1 week Referrals: [facility] [Outside] [facility] [Outside] Boogie White MD [Staff Provider] -
--- NOTE | 2017-05-11 14:35 | PQF GENQUE ---
Dr. Wheatley progress note dated 05/[address] Santos documented "infection associated with intrauterine device." Please specify if you agree with this diagnosis. If so please clarify infection ie..sepsis, pyelonephritis etc.. This form is a permanent part of the medical record Clarification of your documentation is requested to better reflect the severity of illness and intensity of treatment of your patient. Indicators present [] Specify: [] [] Specify: [] [] Specify: [] [] Specify: [] Location in the medical record that reflects the above clinical findings: [] Treatment Provided: [] PHYSICIAN'S RESPONSE Based on your medical judgment of the clinical indicators outlined above please clarify the following: [] Practitioner response [] If unable to determine, please check the box, sign and date. Present On Admission (POA) Indicator: [] Present at the time of admission [] Not present at the time of admission [] Clinically Undetermined In responding to this query, please exercise your independent professional judgment. The fact that a question is asked does not imply that any particular answer is desired or expected. Thank you for your clarification on this documentation. If you have any questions please call:[ ] * Thank you, [ ]Chayo Pedraza oceanographer geological [employer]
== END 2017-05-10 18:25 | disposition home or self-care (01) | DRG 567 ==
LOC: H.ER 22:54 → H.ERHOLD 05-04 03:41 → H.TEL 05-04 06:01
PROVIDERS: ADMIT Internal Medicine; ATTEND Internal Medicine
PROC: 0DTJ4ZZ Resection of Appendix, Percutaneous Endoscopic Approach (ICD-10-PCS; principal; 2017-05-05 12:30)
PROC: 0UPD4HZ Removal of Contraceptive Device from Uterus and Cervix, Percutaneous Endoscopic Approach (ICD-10-PCS; 2017-05-05 12:30)
PROC: 0W9J40Z Drainage of Pelvic Cavity with Drainage Device, Percutaneous Endoscopic Approach (ICD-10-PCS; 2017-05-05 12:30)
DX: T83.69XA Infection and inflammatory reaction due to other prosthetic device, implant and graft in genital tract, initial encounter (principal); A41.9 Sepsis, unspecified organism; K35.3 Acute appendicitis with localized peritonitis; N12 Tubulo-interstitial nephritis, not specified as acute or chronic; Z88.0 Allergy status to penicillin; N73.9 Female pelvic inflammatory disease, unspecified; D64.9 Anemia, unspecified; N70.93 Salpingitis and oophoritis, unspecified